=== PATIENT | female | born 1950 | race Caucasian/White ===

== ENCOUNTER → 2017-02-08 | Outpatient (CLI) | payer BC ==
[~2017-02-08] MED LIST: CARB200T3 PO; LEVO150T PO; METF850T9 PO; OMEP20CA9 PO; VENL150C56 PO; ZCR5 PO
--- NOTE | 2017-02-08 15:20 | MAMMOGRAPHY REPORT ---
BILATERAL DIGITAL SCREENING MAMMOGRAM TOMOSYNTHESIS WITH CAD: 02/08/2017 CLINICAL HISTORY: Routine screening. Patient has no complaints. TECHNIQUE: Breast tomosynthesis in addition to standard 2D mammography was performed. Current study was also evaluated with a Computer Aided Detection (CAD) system. COMPARISON: Comparison is made to exams dated: 02/06/2016 mammogram, 02/04/2015 mammogram - [facility], and 08/15/2007. BREAST COMPOSITION: There are scattered areas of fibroglandular density in both breasts. FINDINGS: There is a right superior axillary lymph node measuring 12 x 17 mm. Although it maintains a lucent center/fatty hilum, it is increased in size comparing to last use mammogram at which time i t measured 10 x 14 mm. There is also an increasingly prominent 8 mm lymph node in the left axilla. Targeted ultrasound of both axillae is recommended for further characterization. There are stable benign-appearing round, punctate and rim calcifications in the breasts. A stable ro d-shaped biopsy marker clip in the 12:00 left breast. No other suspicious mass, architectural distor tion or cluster of microcalcifications is seen. IMPRESSION: ACR BI-RADS CATEGORY 0: INCOMPLETE EVALUATION: NEED ADDITIONAL IMAGING EVALUATION The increasing bilateral axillary lymph nodes need additional imaging evaluation. The patient will be called to schedule an appointment. Approximately 10% of breast cancers are not detected with mammography. A negative mammographic report should not delay biopsy if a clinically suggestive mass is present. Luz Maria Alvarenga M.D. ay/:02/08/2017 13:52:06 Imaging Nurse: Concepcion SCHRADER(R)(Selam), [facility] letter sent: Addl Imaging 0 BI-RADS Code: ACR BI-RADS Category 0: Incomplete Evaluation: Need Additional Imaging Evaluation
== END | disposition home or self-care (01) ==
LOC: C.MAMM 09:40
PROVIDERS: ATTEND Family Medicine
DX: Z12.31 Encounter for screening mammogram for malignant neoplasm of breast (principal); R59.0 Localized enlarged lymph nodes

== ENCOUNTER → 2017-02-17 | Outpatient (CLI) | payer BC ==
--- NOTE | 2017-02-18 15:24 | MAMMOGRAPHY REPORT ---
ULTRASOUND OF BOTH BREASTS: 02/17/2017 CLINICAL HISTORY: Prominent bilateral axillary lymph nodes seen on recent screening mammograms, for [facility] ultrasound was recommended. COMPARISON: Comparison is made to exams dated: 02/08/2017 mammogram, 02/06/2016 mammogram, 5 mammogram - [facility], and 08/15/2007. TECHNIQUE: Real-time targeted ultrasound of bilateral axillae was performed. FINDINGS: Real-time, high resolution targeted ultrasound was performed of bilateral axillary regions to evaluat e the lymph nodes. There are morphologically normal left axillary lymph nodes which have normal fatt y mary and thin peripheral cortices. There is no evidence of left axillary adenopathy. In the right axilla, there is an axillary lymph node which measures 1.4 x 0.7 mm. The lymph node is mildly prominent although retains a normal fatty hilum and the cortical thickness is within normal li mits measuring 2 mm. This is felt to correspond with the increased lymph node seen on the recent scr eening mammogram. Although this appears normal morphologically on ultrasound, given the interval mumtaz nge mammographically, ultrasound guided biopsy is recommended for further evaluation. Other morpholo gically normal right axillary lymph nodes were seen on ultrasound. IMPRESSION: ACR BI-RADS CATEGORY 4: SUSPICIOUS - FOLLOW-UP RECOMMENDED Mildly prominent 1.4 cm right axillary lymph node on ultrasound, which corresponds with the increasin gly prominent lymph node seen mammographically. Although this appears normal morphologically, given the interval change mammographically, it is indeterminate and ultrasound-guided core needle biopsy is recommended for further evaluation. A phone call was made to the physician's office to confirm faxed results were received. The patient was verbally notified of the results. She tentatively scheduled the biopsy before leaving the [facility]. Jovita Carter M.D. ah/:02/17/2017 14:15:02 Can Operator: Barbara FALCON)(Selam), [facility] letter sent: Abnormal 4/5 BI-RADS Code: ACR BI-RADS Category 4: Suspicious
== END | disposition home or self-care (01) ==
LOC: C.MAMM 13:26
PROVIDERS: ATTEND Family Medicine
DX: R59.0 Localized enlarged lymph nodes (principal)

== ENCOUNTER → 2017-03-08 | Outpatient (CLI) | payer BC | END | disposition home or self-care (01) | LOC: C.MAMM 08:26 | PROVIDERS: ATTEND Family Medicine | DX: Z78.0 Asymptomatic menopausal state (principal); E28.39 Other primary ovarian failure ==

== ENCOUNTER 2019-03-19 17:18 | Inpatient (IN) ==
[2019-03-19] MEDS ORDERED: ACETAMINOPHEN 325 MG TAB PO PRN (20:13)
--- NOTE | 2019-03-19 20:29 | XRay Report ---
SINGLE VIEW CHEST CLINICAL HISTORY: Atypical chest pain. Dyspnea. FINDINGS: An AP, portable, upright chest radiograph is compared to study dated 02/28/2019. The cardiom ediastinal silhouette is unremarkable noting mild atherosclerotic calcification of the thoracic aorta . The lungs and pleural spaces are clear. No pneumothorax is seen. The skeletal structures are osteop enic. The bony thorax is grossly intact. IMPRESSION: No active disease in the chest. Electronically signed by: Paul Ma M.D. 03/19/2019 8:27 PM
[2019-03-19] MEDS ORDERED: ATROPINE SULFATE 0.1 MG/ML 10ML SYR IV PRN (20:37)
[2019-03-19 20:41] LABS: Basophils # (auto) 0.06 K/uL (0-0.2); Basophils % (auto) 0.6 %; Eosinophils # (auto) 0.59 K/uL (0-0.5); Eosinophils % (auto) 6.1 %; Hematocrit (blood only) 41.5 % (37-47); Hemoglobin 13.6 g/dL (12.0-16.0); Immature Granulocytes # (auto) 0.02 K/uL (0.00-0.02); Immature Granulocytes % (auto) 0.2 %; Lymphocytes # (auto) 2.95 K/uL (1.2-3.4); Lymphocytes % (auto) 30.6 %; Mean Corpuscular Hemoglobin 28.2 pg (25-34); Mean Corpuscular Volume 85.9 fL (80-100); Mean Platelet Volume 8.5 fL (7.4-10.4); Monocytes # (auto) 0.64 K/uL (0.11-0.59); Monocytes % (auto) 6.6 %; Neutrophils # (auto) 5.38 K/uL (1.4-6.5); Neutrophils % (auto) 55.9 %; Platelet Count 220 K/uL (130-400); RDW Standard Deviation 40.8 fL (36.4-46.3); Red Blood Count 4.83 M/uL (4.2-5.4); White Blood Count 9.64 K/uL (4.8-10.8)
[2019-03-19 20:42] LABS: Mean Corpuscular Hgb Conc 32.8 g/dL (32-36)
[2019-03-19 20:52] LABS: INR 1.1 (0.9-1.1); Partial Thromboplastin Time 26.2 Seconds (21.0-31.0); Prothrombin Time 10.8 Seconds (9.0-12.0)
[2019-03-19 20:59] LABS: Alanine Aminotransferase 22 U/L (12-78); Albumin Level 3.4 gm/dl (3.4-5.0); Aspartate Aminotransferase 17 U/L (15-37); BUN Creatinine Ratio 19.4 (10-20); Blood Urea Nitrogen 13 mg/dl (7-18); Calcium 9.1 mg/dl (8.5-10.1); Carbon Dioxide 28 mmol/L (21-32); Chloride 107 mmol/L (98-107); Creatinine Clr Calc Pharmacy 74.9 ml/min; Est GFR (African American) 104.8; Est GFR (Non-African American) 90.4; Glucose 120 mg/dl (70-99); Potassium 3.8 mmol/L (3.5-5.1); Sodium 139 mmol/L (136-145)
[2019-03-19] MEDS ORDERED: POTASSIUM CHLORIDE 20 MEQ TABCR PO STA (21:05)
[2019-03-19 21:09] LABS: Albumin Globulin Ratio 0.9 (0.9-2); Alkaline Phosphatase 91 U/L (45-117); Bilirubin,Total 0.3 mg/dl (0.2-1); Creatine Kinase MB 1.3 ng/ml (0.5-3.6); NT Pro B Type Natriuretic Pept 326 pg/ml (0-900); Total Protein 7.4 gm/dl (6.4-8.2); Troponin I 0.025 ng/ml (0-0.045)
--- NOTE | 2019-03-19 21:15 | History & Physical Report ---
Date of Service March 19, 2019 Assessment & Plan (1) Hypothyroidism: (2) Hypertension: (3) Hyperlipidemia: (4) Diabetes mellitus, type 2: (5) GERD (gastroesophageal reflux disease): (6) Heart block: 69-year-old female with history of DM 2, hypertension, hyperlipidemia, hypothyroidism, Lyme, GERD presents with concern for heart block from manager [employer] office Dr. Arellano [facility]. Patient is scheduled to have EP study, cath and pacemaker placement with Dr. Almendarez today. Concern for recent past STEMI and currently with intermittent heart block Patient is asymptomatic and Troponins wnl x 2 EK, normal sinus rhythm with first-degree heart block HI 258, LBBB QTc 452; concern for ST elevation in V3 and V4 EKG February 28 at [facility] outpatient clinic: Sinus LBBB, poor R wave progression throughout precordium Echo 03/05/2019 at [facility]: EF 45%, mild global hypokinesis with thinning and akinesis mid to distal anterior septum and septum and apex out of proportion to just LBBB, moderate aortic insufficiency Holter monitor 03/14/19: Basic rhythm first-degree AV block and sinus rhythm, periods of WenkeBach 2-1 ratio AV block and complete heart block with slow escape rhythm LBBB -with episodes of shortness of breath and palpitation; periods of blocked PACs, rare PVCs, ventricular pairs, triplets and bigeminy occasional PACs Started on heparin drip with bolus Monitor on telemetry Trend troponin Pacer pads and atropine 0.5 mg IV by bedside for heart rate less than 30 Cardiology consulted: Dr. Almendarez History of hypertension/hyperlipidemia Hold home aspirin in the setting of procedure tomorrow Hold home benazepril Continue home atorvastatin DM2 Hold home metformin and Tresiba Started on SSI Hypothyroidism Continue home levothyroxine FEN/GI: N.p.o. for possible procedure tomorrow DVT prophylaxis: Heparin drip Code: Full Disposition: PCU telemetry (7) ST elevation (STEMI) myocardial infarction: 69-year-old female with history of DM 2, hypertension, hyperlipidemia, hypothyroidism, Lyme, GERD presents with concern for heart block from manager [employer] office Dr. Adan Leon [facility]. Patient is scheduled to have EP study, cath and pacemaker placement with Dr. Almendarez tomorrow. Concern for STEMI and heart block Currently patient is asymptomatic EK, normal sinus rhythm with first-degree heart block HI 258, LBBB QTc 452; concern for ST elevation in V3 and V4 EKG February 28 at [facility] outpatient clinic: Sinus LBBB, poor R wave progression throughout precordium Echo 03/05/2019 at [facility]: EF 45%, mild global hypokinesis with thinning and akinesis mid to distal anterior septum and septum and apex out of proportion to just LBBB, moderate aortic insufficiency Holter monitor 03/14/19: Basic rhythm first-degree AV block and sinus rhythm, periods of WenkeBach 2-1 ratio AV block and complete heart block with slow escape rhythm LBBB -with episodes of shortness of breath and palpitation; periods of blocked PACs, rare PVCs, ventricular pairs, triplets and bigeminy occasional PACs Troponin 0.025, BNP normal, TSH normal Started on heparin drip with bolus Monitor on telemetry Trend troponin Pacer pads and atropine 0.5 mg IV by bedside for heart rate less than 30 Cardiology consulted: Dr. Almendarez History of hypertension/hyperlipidemia Hold home aspirin in the setting of procedure tomorrow Hold home benazepril Continue home atorvastatin DM2 Hold home metformin and Tresiba Started on SSI Hypothyroidism Continue home levothyroxine FEN/GI: N.p.o. for possible procedure tomorrow DVT prophylaxis: Heparin drip Code: Full Disposition: PCU telemetry History of Present Illness Chief Complaint: Concern for heart block Primary Care Provider: Dora Lara MD 69-year-old female with history of DM 2, hypertension, hyperlipidemia, hypothyroidism, Lyme, GERD presents with concern for heart block from manager [employer] office Dr. Arellano [facility]. Patient is scheduled to have EP study, cath and pacemaker placement with Dr. Almendarez tomorrow. Patient reports shortness of breath on exertion that started about 6 months ago and got worse about 1 month ago. She saw cardiology about 10 days ago for sick concern of increased shortness of breath on exertion, when walking uphill and lightheadedness. She had an EKG which was abnormal and Dr. Arellano also ordered echo and Holter. She was called tonight to go to the hospital for concern of episodes of 2-1 AV block and complete heart block with left bundle branch block. Currently patient denies any shortness of breath, chest pain, lightheadedness, palpitations. However if she significantly exerts herself, bends over or gets up too quickly she feels lightheaded and short of breath. She also reports history occasional nanosecond chest pain that is sharp in nature and pressure- like chest pain if doing things around the house/exerting herself but it goes away with rest. None at this time Denies any fever, chills, headache, abdominal pain, nausea, vomiting, diarrhea, constipation, hematochezia, melena, hematuria and dysuria Social history: Patient quit smoking in 2005, smoked for 35 years 1 pack/day, drinks 1 glass of wine once a month, no recreational drug use Surgical history: History of cholecystectomy and cataract surgery Allergies Allergy/AdvReac Type Severity Reaction Status Date / Time levofloxacin Allergy Mild dizzy Verified 09/05/18 08:01 Penicillins Allergy Unknown UNKNOWN Verified 09/05/18 08:01 erythromycin base AdvReac Intermediate BRUISES ON Verified 09/05/18 08:01 LEGS Home Medications Home Medications Medication Instructions Recorded Confirmed Type PreserVision AREDS-2 1 tab PO BID 08/07/18 03/19/19 History aspirin 81 mg PO HS 08/07/18 03/19/19 History metformin [Glucophage] 1,000 mg PO Q12 08/07/18 03/19/19 History omeprazole 20 mg PO QAM 08/07/18 03/19/19 History Tresiba FlexTouch U-100 22 unit SUBCUT BID 09/05/18 03/19/19 History levothyroxine 112 mcg PO DAILY 09/05/18 03/19/19 History atorvastatin 20 mg PO HS 03/19/19 03/19/19 History benazepril 10 mg PO HS 03/19/19 03/19/19 History nitroglycerin 0.4 mg SUBLINGUAL UNKNOWN PRN 03/19/19 03/19/19 History Past Med/Surg History Medical History Branch retinal artery occlusion of right eye Diabetes mellitus, type 2 GERD (gastroesophageal reflux disease) Hyperlipidemia Hypertension Hypothyroidism Surgical History History of bilateral cataract extraction History of cholecystectomy History of colonoscopy History of esophagogastroduodenoscopy (EGD) History of strabismus surgery left eye History of tonsillectomy and adenoidectomy History of tooth extraction upper and lower dentures History of wisdom tooth extraction Hx of left breast biopsy x2--benign Family History Mother Family history of stomach cancer Other No family history of adverse response to anesthesia Social History Preferred Language: Egyptian Communication Ability: Effective House Calls Nurse Required: No Beliefs That Will Affect Care: None Current Living Situation: Spouse and Family Current Living Situation Comment: Lives with and daughter Other Information That Helps Us Care for You: No Feels Safe at Home: Yes Safety Concerns: Feels Safe At This Time Smoking Status: Former smoker Second Hand Exposure: Yes (parents smoked) ; Hx Alcohol Use: Yes Alcohol type: wine Hx Substance Use: No Review of Systems Review of Systems: As per HPI Physical Exam Physical Exam: General: In NAD, pleasant HEENT: moist oral mucosa Neuro: A&O x 4 Pulm: CTAB equal breath sounds bilaterally CV: RRR, no m/r/g, equal and 2+ radial and posterior tibial pulses Abdomen:+BS, no TTP in all quadrants, non-distended LE: no LE edema, no calf TTP Results & Data Vital Signs (Past 12 Hours) Vital Signs Temp Pulse Resp BP Pulse Ox 03/19/19 19:35 36.6 C 69 16 172/77 H 96 Laboratory Results Abnormal lab results 03/19/19 03/19/19 Range/Units 20:20 20:20 [place] # (Auto) 0.64 H (0.11-0.59) K/uL [place] # (Auto) 0.59 H (0-0.5) K/uL Glucose 120 H (70-99) mg/dl Diagnostic Findings SINGLE VIEW CHEST CLINICAL HISTORY: Atypical chest pain. Dyspnea. FINDINGS: An AP, portable, upright chest radiograph is compared to study dated 02/28/2019. The cardiomediastinal silhouette is unremarkable noting mild atherosclerotic calcification of the thoracic aorta. The lungs and pleural spaces are clear. No pneumothorax is seen. The skeletal structures are osteopenic. The bony thorax is grossly intact. IMPRESSION: No active disease in the chest. Code Status & VTE Plan Code Status Full VTE Prophylaxis Plan VTE Prophylaxis will be ordered: Yes Supervising Physician Co-Signing Physician Notes I directly supervised in the treatment of Ms.Saeid including but not limited my involvement into clinical examination, reconciliation of the medication and comorbidities and making a assessment and plan and I entirely agree with H&P. Resident Activity Tracking Resident Involvement: Resident Care Provided Care Provided: Adult Hospital Medicine
[2019-03-19 21:18] LABS: Magnesium 1.6 mg/dl (1.8-2.4)
[2019-03-19] MEDS ORDERED: HEPARIN IV BOLUS 5,000 UNITS in SYRINGE 0 ML IV ONE (22:00)
[2019-03-19] MEDS ORDERED: HEPARIN SODIUM/DEXTROSE 25,000 UNITS/500 ML BAG IV SCH (22:15)
[2019-03-20] MEDS ORDERED: MAGNESIUM SULFATE / D5W 1 GM/100 ML BAG IV ONE (00:59)
[2019-03-20 04:53] LABS: Basophils # (auto) 0.07 K/uL (0-0.2); Basophils % (auto) 0.8 %; Eosinophils # (auto) 0.63 K/uL (0-0.5); Eosinophils % (auto) 7.3 %; Hematocrit (blood only) 38.5 % (37-47); Hemoglobin 12.7 g/dL (12.0-16.0); Immature Granulocytes # (auto) 0.01 K/uL (0.00-0.02); Immature Granulocytes % (auto) 0.1 %; Lymphocytes # (auto) 3.13 K/uL (1.2-3.4); Lymphocytes % (auto) 36.3 %; Mean Corpuscular Hemoglobin 28.3 pg (25-34); Mean Corpuscular Volume 85.7 fL (80-100); Mean Platelet Volume 8.6 fL (7.4-10.4); Monocytes % (auto) 10.4 %; Neutrophils # (auto) 3.88 K/uL (1.4-6.5); Neutrophils % (auto) 45.1 %; Platelet Count 214 K/uL (130-400); RDW Coefficient of Variation 13.2 % (11.5-14.5); RDW Standard Deviation 41.2 fL (36.4-46.3); Red Blood Count 4.49 M/uL (4.2-5.4); White Blood Count 8.62 K/uL (4.8-10.8)
[2019-03-20 05:10] LABS: Partial Thromboplastin Ratio 4.2
[2019-03-20 05:20] LABS: Albumin Level 3.2 gm/dl (3.4-5.0); BUN Creatinine Ratio 21.5 (10-20); Calcium 8.8 mg/dl (8.5-10.1); Creatinine Clr Calc Pharmacy 82.7 ml/min; Est GFR (African American) 108.2; Est GFR (Non-African American) 93.4; Potassium 3.9 mmol/L (3.5-5.1)
[2019-03-20 05:25] LABS: Albumin Globulin Ratio 0.9 (0.9-2); Bilirubin,Total 0.4 mg/dl (0.2-1); Globulin 3.4 gm/dl (2.5-4.0); Total Protein 6.6 gm/dl (6.4-8.2); Troponin I 0.022 ng/ml (0-0.045)
[2019-03-20 05:26] LABS: Partial Thromboplastin Time 112.7 Seconds (21.0-31.0)
[2019-03-20] MEDS: LEVOTHYROXINE SODIUM 112 MCG TABLET PO SCH (05:59)
[2019-03-20] MEDS: PANTOprazole 40 MG TAB PO SCH (07:57)
--- NOTE | 2019-03-20 08:36 | Hospitalist Progress Note ---
Date of Service March 20, 2019 Assessment & Plan (1) Heart block: Troponins wnl x 2 EK, normal sinus rhythm with first-degree heart block VT 258, LBBB QTc 452; concern for ST elevation in V3 and V4 EKG February 28 at [facility] outpatient clinic: Sinus LBBB, poor R wave progression throughout precordium Echo 03/05/2019 at [facility]: EF 45%, mild global hypokinesis with thinning and akinesis mid to distal anterior septum and septum and apex out of proportion to just LBBB, moderate aortic insufficiency Holter monitor 03/14/19: Basic rhythm first-degree AV block and sinus rhythm, periods of WenkeBach 2-1 ratio AV block and complete heart block with slow escape rhythm LBBB -with episodes of shortness of breath and palpitation; periods of blocked PACs, rare PVCs, ventricular pairs, triplets and bigeminy occasional PACs - Heparin drip discontinued per cardiology - Cardiology consulted: Dr. Almendarez - Diagnostic cath today - 50-60% stenosis in between the 1st and 2nd diagonal branches of the LAD but otherwise clean cath (2) Hypothyroidism: Continue home levothyroxine (3) Hypertension: Resume aspirin and benazepril (4) Hyperlipidemia: Continue home atorvastatin (5) Diabetes mellitus, type 2: DM2 Hold home metformin and Tresiba Continue SSI (6) GERD (gastroesophageal reflux disease): continue home pantoprazole (7) DVT prophylaxis: SCDs Subjective Ms. Breaux was feeling well when I saw her this morning. She did have occasional fluttering feelings in her chest but no chest pain or other symptoms today. She was NPO for procedures this afternoon ROS Constitutional: no chills, aches, sweats or fever Respiratory: no sob,cough, sputum, or wheezing Cardiac: no chest pain, palpitations, edema, orthopnea or lightheadedness GI: no abdominal pain, nausea, vomiting, diarrhea or constipation : no dysuria or hesitancy Extremities: no joint pain or weakness Skin: no rash All other systems reviewed and negative Physical Exam Physical Exam: General: no distress Eyes: normal inspection, PERLL Respiratory: chest non tender, clear to auscultation, normal breath sounds, no respiratory distress, no accessory muscle use Cardiac: regular rate and rhythm, no rub or gallop, no murmur, no edema, no jvd GI/: active bowel sounds, no abd pain or tenderness, soft, non distended Extremities: normal range of motion, normal strength, non tender Neuro/Psych: alert and oriented x 3, normal mood and affect Skin: normal color, dry Results & Data Vital Signs (Past 12 Hours) Vital Signs Temp Pulse Resp BP Pulse Ox 03/20/19 08:11 36.7 C 57 L 18 116/73 97 03/20/19 03:42 36.7 C 64 18 136/71 97 03/19/19 23:13 36.5 C 66 18 155/67 H 98 PG Care Time/CCT Total # of Minutes Spent Total Time Spent with Patient: Total time spent is greater than 50% in coordination of care (as documented) at patient's floor/unit and/or counseling patient:
--- NOTE | 2019-03-20 09:06 | Cardiology Consultation ---
Date of Consultation March 20, 2019 History of Present Illness History of Present Illness Patient is a 69-year-old female with past medical history significant for diabetes mellitus hypertension hyperlipidemia and remote history of myocardial infarction in the recent past who was originally seen in my office for an abnormal echocardiogram which revealed hypokinesis of the anterior apical region with a reduced LVEF of 45%. Patient noted that she started having shortness of breath several weeks ago and noted no associated lightheadedness. She had denied chest pain palpitations or any other complaints. She was subsequently set up with a monitor as well as a stress viability MRI. We received the report yesterday which showed that she did have in fact intermittent 2-1 AV block as well as complete heart block that was intermittent with associated lightheadedness. The patient was subsequently directly admitted to [facility] for further care with the intention of having her undergo a diagnostic catheterization and possible DIESEL RET[employer]IT DES[employer]ER-P therapy. This morning she was seen and examined and is noting that she is stable feeling well she is denying any complaints of lightheadedness chest pain shortness of breath although she notes she only walk from her bed to the bathroom with no other ambulation or exertion. She is otherwise stable with no other complaints. Allergies Allergy/AdvReac Type Severity Reaction Status Date / Time levofloxacin Allergy Mild dizzy Verified 09/05/18 08:01 Penicillins Allergy Unknown UNKNOWN Verified 09/05/18 08:01 erythromycin base AdvReac Intermediate BRUISES ON Verified 09/05/18 08:01 LEGS Home Medications Home Medications Medication Instructions Recorded Confirmed Type PreserVision AREDS-2 1 tab PO BID 08/07/18 03/19/19 History aspirin 81 mg PO HS 08/07/18 03/19/19 History metformin [Glucophage] 1,000 mg PO Q12 08/07/18 03/19/19 History omeprazole 20 mg PO QAM 08/07/18 03/19/19 History Tresiba FlexTouch U-100 22 unit SUBCUT BID 09/05/18 03/19/19 History levothyroxine 112 mcg PO DAILY 09/05/18 03/19/19 History atorvastatin 20 mg PO HS 03/19/19 03/19/19 History benazepril 10 mg PO HS 03/19/19 03/19/19 History nitroglycerin 0.4 mg SUBLINGUAL UNKNOWN PRN 03/19/19 03/19/19 History Patient History Medical History Branch retinal artery occlusion of right eye Diabetes mellitus, type 2 GERD (gastroesophageal reflux disease) Hyperlipidemia Hypertension Hypothyroidism Surgical History History of bilateral cataract extraction History of cholecystectomy History of colonoscopy History of esophagogastroduodenoscopy (EGD) History of strabismus surgery left eye History of tonsillectomy and adenoidectomy History of tooth extraction upper and lower dentures History of wisdom tooth extraction Hx of left breast biopsy x2--benign Family History Mother Family history of stomach cancer Other No family history of adverse response to anesthesia Social History Preferred Language: Citizen Of [place] Communication Ability: Effective Field Seismologist Required: No Beliefs That Will Affect Care: None Current Living Situation: Spouse and Family Current Living Situation Comment: Lives with and daughter Other Information That Helps Us Care for You: No Feels Safe at Home: Yes Safety Concerns: Feels Safe At This Time Smoking Status: Former smoker Second Hand Exposure: Yes (parents smoked) ; Hx Alcohol Use: Yes Alcohol type: wine Hx Substance Use: No Review of Systems Review of Systems: All systems reviewed & are unremarkable except as noted in HPI & below Physical Exam Physical Exam: General appearance: NextPatient was awake and alert and oriented no apparent distress stable pleasant HEENT: Normocephalic atraumatic sclera nonicteric mucous membranes were somewhat dry Neck: No JVD bruits or adenopathy noted Cardiovascular: Regular rate and rhythm with no appreciable murmurs Lungs: Clear to auscultation Abdomen: Soft nontender nondistended positive bowel sounds no bruits or masses no rebound tenderness Extremities: No clubbing cyanosis or edema Neuro: Grossly nonfocal Results & Data Vital Signs (Past 12 Hours) Vital Signs Temp Pulse Resp BP Pulse Ox 03/20/19 08:11 36.7 C 57 L 18 116/73 97 03/20/19 03:42 36.7 C 64 18 136/71 97 03/19/19 23:13 36.5 C 66 18 155/67 H 98 Impression and plan: 1. History of myocardial infarction 2. Diabetes mellitus 3. Hyperlipidemia 4. Hypertension 5. Left bundle branch block 6. Complete heart block Given the patient's history and presentation we will consult Dr. Andi Almendarez to have the patient undergo a diagnostic cardiac catheterization will await those results and the patient will also be evaluated for possible [employer]-P therapy given her sinus rhythm left bundle branch block with reduced LVEF less than 50% and history of complete heart block that is symptomatic. We will continue with titrating her guideline directed pharmacotherapy. I recommended a low-sodium low-fat heart healthy diet. We will continue with telemetry monitoring and again we will await the results of the diagnostic cardiac catheterization before making any further cardiac recommendations. Please call if you have any questions
[2019-03-20] MEDS: ASPIRIN 325 MG ECTAB PO SCH (10:33)
[2019-03-20] MEDS: CEROVITE ADV FORMULA TAB PO SCH ×2 (10:34→20:24)
--- NOTE | 2019-03-20 13:42 | Pre Anesthesia Assessment ---
Date of Service March 20, 2019 Pre Sedation Assessment Vital Signs Temp Pulse Resp BP Pulse Ox 03/20/19 11:36 36.8 C 62 18 117/69 95 03/20/19 08:11 36.7 C 57 L 18 116/73 97 03/20/19 03:42 36.7 C 64 18 136/71 97 03/19/19 23:13 36.5 C 66 18 155/67 H 98 03/19/19 19:35 36.6 C 69 16 172/77 H 96 Cardiovascular + regular rate Respiratory + respiratory effort normal Pre-Sedation Airway Assessment Smoking Status: Former smoker Hx Sleep Apnea: No Short, Thick Neck: No Thyromental Distance: > or= 3.5 Finger Breadths Oral Cavity: + WNL Mallampati Class: III ASA: ASA3 Procedure Planning Contraindications for Sedation: none Current Medications Reviewed: Yes Notes The planned sedation has been discussed with the patient. Informed Consent was obtained. I have identified the patient, determined the appropriateness of sedation and have assessed the patient immediately prior to the procedure. All medicine(s) and interventions are by my order.
[2019-03-20] MEDS ORDERED: MIDAZOLAM HCL 1 MG/ML 2ML VIAL ONE ×2 (14:24→15:08)
[2019-03-20] MEDS ORDERED: fentaNYL citrate 100 MCG/2 ML VIAL ONE ×2 (14:24→15:29)
[2019-03-20] MEDS ORDERED: NiCARDipine HCL INJ 2.5 MG/ML 10 ML AMP ONE (14:24)
[2019-03-20] MEDS ORDERED: HEPARIN (PORCINE) 1000 UNIT/ML 10 ML (CATH LAB USE ONLY) ONE (14:24)
[2019-03-20] MEDS ORDERED: NITROGLYCERIN/D5W 100MCG/ML 20ML SYR ONE (14:25)
--- NOTE | 2019-03-20 14:40 | Cardiology Consultation ---
Date of Consultation March 20, 2019 Assessment & Plan (1) Dyspnea on exertion: Unclear etiology for her dyspnea. She may have an element of coronary artery disease and this could be considered an anginal equivalent. She also has some reduced LV systolic function in this could be exercise intolerance related to her mild cardiomyopathy. Additionally, she likely has an element of infra- Hisian conduction disease. With activity the should get worse and she may simply have symptomatic bradycardia at times. We will evaluate all of these today. She will undergo coronary angiography and if she does not require surgical revascularization we will plan on pacemaker implantation. (2) Heart block: She has baseline conduction disease manifest by a long UT interval and left bundle branch block. It is unclear whether this accounts for her reduced LV systolic function. She could have ischemic heart disease or a nonischemic cardiomyopathy which has also resulted in conduction disease. She is very concerned about Lyme disease causing her problems. However, she was treated for acute Lyme several months ago. I do not believe her current conduction issues are related to Lyme disease. She has had periods of high-degree AV block. She likely had infra-Hisian conduction disease and would benefit from permanent pacing. Given her mildly reduced LV function in the possibility that she will pacing significant amount of time, a biventricular device seems most appropriate. History of Present Illness Reason for Consultation: Heart block, abnormal echocardiogram Requesting Physician: Adan Attending Physician: Jared Bower MD History of Present Illness The patient is a 69-year-old woman without a known history of cardiac disease who recently presented to her primary care physician with symptoms of worsening dyspnea. He states that prior to the past several weeks she was very active. She is able to ambulate and walk extended distances without significant dyspnea or other limitation. Recently she has been experiencing shortness of breath with activity. This does not tend to occur at rest. She did not describe symptoms of orthopnea or paroxysmal nocturnal dyspnea. She does have vague symptoms of chest pressure. This is not always exertional. She also has episodes of fleeting chest pain that she describes as stabbing. She has had some brief episodes of dizziness. She has not suffered syncope. She has not been aware of palpitations. Outpatient evaluation included an echocardiogram which was abnormal. This demonstrated mildly reduced LV systolic function with an estimated ejection fraction of 45%. She also had regional wall motion abnormality involving the anterior apex. Holter monitoring was also performed and patient was noted to have episodes of high-degree heart block. She has a baseline left bundle branch block and 1st degree AV block. Allergies Allergy/AdvReac Type Severity Reaction Status Date / Time levofloxacin Allergy Mild dizzy Verified 09/05/18 08:01 Penicillins Allergy Unknown UNKNOWN Verified 09/05/18 08:01 erythromycin base AdvReac Intermediate BRUISES ON Verified 09/05/18 08:01 LEGS Home Medications Home Medications Medication Instructions Recorded Confirmed Type PreserVision AREDS-2 1 tab PO BID 08/07/18 03/19/19 History aspirin 81 mg PO HS 08/07/18 03/19/19 History metformin [Glucophage] 1,000 mg PO Q12 08/07/18 03/19/19 History omeprazole 20 mg PO QAM 08/07/18 03/19/19 History Tresiba FlexTouch U-100 22 unit SUBCUT BID 09/05/18 03/19/19 History levothyroxine 112 mcg PO DAILY 09/05/18 03/19/19 History atorvastatin 20 mg PO HS 03/19/19 03/19/19 History benazepril 10 mg PO HS 03/19/19 03/19/19 History nitroglycerin 0.4 mg SUBLINGUAL UNKNOWN PRN 03/19/19 03/19/19 History Patient History Medical History Branch retinal artery occlusion of right eye Diabetes mellitus, type 2 GERD (gastroesophageal reflux disease) Hyperlipidemia Hypertension Hypothyroidism Surgical History History of bilateral cataract extraction History of cholecystectomy History of colonoscopy History of esophagogastroduodenoscopy (EGD) History of strabismus surgery left eye History of tonsillectomy and adenoidectomy History of tooth extraction upper and lower dentures History of wisdom tooth extraction Hx of left breast biopsy x2--benign Family History Mother Family history of stomach cancer Other No family history of adverse response to anesthesia Social History Preferred Language: Arabic Communication Ability: Effective Drafter Electronic Required: No Beliefs That Will Affect Care: None Current Living Situation: Spouse and Family Current Living Situation Comment: Lives with and daughter Other Information That Helps Us Care for You: No Feels Safe at Home: Yes Safety Concerns: Feels Safe At This Time Smoking Status: Former smoker Second Hand Exposure: Yes (parents smoked) ; Hx Alcohol Use: Yes Alcohol type: wine Hx Substance Use: No Results & Data Vital Signs (Past 12 Hours) Vital Signs Temp Pulse Resp BP Pulse Ox 03/20/19 11:36 36.8 C 62 18 117/69 95 03/20/19 08:11 36.7 C 57 L 18 116/73 97 03/20/19 03:42 36.7 C 64 18 136/71 97 PG Care Time/CCT Total # of Minutes Spent Total Time Spent with Patient: Total time spent is greater than 50% in coordination of care (as documented) at patient's floor/unit and/or counseling patient:
[2019-03-20] MEDS ORDERED: CLINDAMYCIN PHOS 300 MG/2 ML VIAL ONE (14:54)
[2019-03-20] MEDS ORDERED: LIDOCAINE HCL 1% 20 ML VIAL ONE (15:02)
[2019-03-20] MEDS ORDERED: BUPIVACAINE 0.25% 30 ML VIAL ONE (15:02)
[2019-03-20] MEDS ORDERED: BACITRACIN INJ 50,000 UNIT VIAL ONE (15:03)
--- NOTE | 2019-03-20 15:08 | Cardiac Catheterization ---
[facility] Data: Hostess Host Cardiac Status Clinical evaluation leading to the procedure CAD Presenation: Stable angina Diagnostic Physicians Name: Andi Almendarez MD Closure Device Recommendations: Medical Therapy and/or Counseling Cardiac Cath Procedure Full Procedure Date March 20, 2019 Pre-Procedure Diagnosis Pre-Procedure Diagnosis: Cardiomyopathy AUC Score AUC Score: 8 Post-Procedure Diagnosis Post-Procedure Diagnosis: Mild CAD Procedure(s) Performed Procedure(s) Performed: Coronary Angiography and Left Heart Cath [facility] Andi Almendarez MD Instructional Technologist(s) none Estimated Blood Loss Estimated Blood Loss: 7cc Medication(s) Medication(s): Fentanyl, Heparin, Lidocaine 1%, Nicardipine, Nitroglycerin and Versed Summary of Findings Equipment used: 5 Turkmen tiger 4 Coronary angiography: Left main: Left main coronary artery was of normal size and caliber. It bifurcated normally into the left anterior descending and left circumflex arteries. There is no significant disease in this vessel Left anterior descending: Left anterior descending was a large transapical vessel. It produced a medium-sized 1st diagonal and a smaller 2nd diagonal branch prior to reaching the apex. There was approximately a 50-60% stenosis in between the 1st and 2nd diagonal branches. No other obstructive disease in this vessel Left circumflex: Left circumflex artery was a codominant vessel. It produced a large branching 1st OM system and several additional smaller obtuse marginal branches. There were no significant stenotic lesions in this vessel. Right coronary artery: The right coronary artery was a codominant vessel. It was relatively small. It produced a small PDA and PL branch. There is no significant disease in this vessel. Hemodynamics Rest Ao:: 107/57 mm Hg Final Ao: 116/55 mm of mercury LV: 112/1 mm hg with a left ventricular end-diastolic pressure of 7 mm of mercury Recommendations Recommendations: Medical Therapy and/or Counseling Specimens Specimens: None Radiation Exposure (mGy) q Contrast (mls) 30 CC Procedural Complication(s) None Disposition PCU I attest to the content of the Intraoperative Record and any orders documented therein. Any exceptions are noted below. [facility] Card Cath Procedure Codes Cardiac Catheterization Procedure 1: Cardiovascular Cath Procedures: 78977 Coronaries and LHC (+/-LV) PG Care Time/CCT Total # of Minutes Spent Total Time Spent with Patient: Total time spent is greater than 50% in coordination of care (as documented) at patient's floor/unit and/or counseling patient:
[2019-03-20] MEDS ORDERED: MIDAZOLAM HCL 5 MG/ML 1 ML VIAL ONE (15:29)
--- NOTE | 2019-03-20 17:25 | Procedure Note ---
Procedure Note Date of Service March 20, 2019 Note Procedure performed: Implantation of biventricular pacemaker Staff prescription eyeglass maker: Andi Almendarez MD Indication: The patient is a 69-year-old woman with a history of exertional dyspnea secondary to bradycardia. She has baseline conduction disease and was noted to have high degree AV block on Holter monitoring. Based on her symptoms she is felt to require pacemaker due to symptomatic nonreversible AV node dysfunction. Is also noted to have reduced LV systolic function with an ejection fraction of 45%. Due to the need for significant pacing she is felt be good candidate for biventricular device. Procedure in detail: The patient was informed of the risks benefits and alternatives to the intended procedure and she wished to proceed. She was taken to the electrophysiology suite in a fasting state. A preoperative antibiotic had been administered. The patient was monitored electrocardiographically throughout today's procedure and conscious sedation was administered per protocol. The left upper pectoral area is prepped and draped in usual sterile fashion. This area was anesthetized using subcutaneous administration of a xylocaine solution. An incision was made at this site and carried down to the prepectoralis fascia using sharp dissection. Electrocautery was also employed for dissection as well as for hemostasis. A device pocket was fashioned tissues above the pectoralis muscle. Subsequent to this maneuver the left axillary vein was accessed using modified Seldinger technique. Sheaths were placed over guidewires at this site and used to facilitate passage of the pacing leads to the respective chambers under fluoroscopic guidance. This included right atrial and right ventricular leads. Adequate sensing and threshold parameters were obtained prior to Active fixation of the leads to the endocardial surface. The proximal portion leads were then sutured the prepectoral fascia using nonabsorbable suture. After the atrial and right ventricular leads were placed, a guiding catheter was advanced to the area of the coronary sinus. The coronary sinus was subsequently cannulated and a limited coronary sinus venogram was performed. This enabled us to identify suitable target vessels. Standard guidewire techniques were then deployed in order to deliver the lead to the target vessel. Adequate sensing and threshold parameters in the absence of diaphragmatic stimulation at high output were recorded prior to removal of the guiding sheath. The proximal portion of this lead was then sutured to the prepectoralis fascia using nonabsorbable suture. The device pocket was irrigated with antibiotic solution. The leads were then attached to the device. The device and leads were then placed in the pocket and pocket was closed in 3 layers of absorbable suture. Steri-Strips and sterile dr essing were applied. The device was tested noninvasively prior to conclusion the procedure. The patient tolerated procedure well there no immediate complications. Equipment used: New pulse generator: Continuous Washer Operator [employer]. Model number: W4 TR 02 serial number [id number] Right atrial lead: Continuous Washer Operator [employer]. Model number: 5076 serial number [id number] Right ventricular lead: Continuous Washer Operator [employer]. Model number: 5076 serial number [id number] Left ventricular lead project architect [employer]. Model #4798 serial number Q [id number] Measured data: Right atrial lead: P waves measure 1.8 mV. Pacing threshold 0.5 V 0.4 ms with pacing impedance of 589 ohms Right ventricular lead: R waves measured 8.4 mV. Pacing threshold was 1 V at 0.4 ms with a pacing impedance of 741 ohms Left ventricular lead: R waves measured 17 mV. Pacing threshold 0.625 V at 0.4 ms with a pacing impedance of 437 ohms Impression: Successful implantation of biventricular pacemaker Coding
--- NOTE | 2019-03-20 17:46 | Post Anesthesia Assessment ---
Date of Service March 20, 2019 Post Sedation Assessment Vital Signs Temp Pulse Resp BP Pulse Ox 03/20/19 11:36 36.8 C 62 18 117/69 95 03/20/19 08:11 36.7 C 57 L 18 116/73 97 03/20/19 03:42 36.7 C 64 18 136/71 97 03/19/19 23:13 36.5 C 66 18 155/67 H 98 03/19/19 19:35 36.6 C 69 16 172/77 H 96 Recovery Score Activity: Moves 4 extremities Respiration: Deep Breath/Cough Circulation: +/-20% PreAnes Value Consciousness: Fully Awake Oxygen Saturation: > 92% On Room Air Discharge Sedation Level of Care: Fast Track Phase II Post Sedation Plan On clinical assessment, the patient appears to have tolerated the sedation without complications. Patient is recovering as anticipated. Patient will continue to be monitored by nursing and may be discharged when sedation discharge criteria are met per below protocol. Upon Completions of procedure up to 15 minutes continue every 5 minute vital signs and the P.A.R. score; then discharge to a Phase I or Fast Track to Phase II per the following guidelines: * Discharge Patient to appropriate Phase II area if PAR is 8 or greater or return to pre- procedure baseline. The post - procedure orders will be as directed. * If PAR score is less than 8 or not return to pre-procedure baseline then patient will follow Phase I monitoring till PAR is reached for Phase II. The Phase I may be done in procedure room or may call to secure a Phase I area. * If naloxone or flumazenil are used for reversal, hold in Phase I for continued monitoring from when last reversal dose was given for a minimum of 60 minutes or longer pending the nurse and/or physician discretion of patient condition before discharge to Phase II. Please call the Sedation Physician to re-evaluate and complete post-note for discharge to Phase II area. Do NOT discharge from procedure sedation or Phase 1 until post- sedation evaluation note is complete by procedure /sedation MD Sedation Discharge Instructions to be given to the patient at discharge to home.
[2019-03-20] MEDS ORDERED: ONDANSETRON INJ 2 MG/ML 2 ML VIAL IV ONE (18:41)
[2019-03-20] MEDS ORDERED: ONDANSETRON INJ 2 MG/ML 2 ML VIAL ONE (18:43)
[2019-03-20] MEDS: ACETAMINOPHEN 325 MG TAB PO PRN (18:49)
[2019-03-20] MEDS: OXYCODONE HCL IR 5 MG TAB (IMMEDIATE RELEASE) PO PRN (20:01)
[2019-03-20] MEDS ORDERED: ATORVASTATIN 20 MG TAB PO SCH (21:00)
[2019-03-20] MEDS ORDERED: ENALAPRIL MALEATE 10 MG TAB PO SCH (21:00)
[2019-03-20] MEDS: CLINDAMYCIN 600 MG in DEXTROSE 5% 50 ML IV SCH (23:41)
[2019-03-21] MEDS: OXYCODONE HCL IR 5 MG TAB (IMMEDIATE RELEASE) PO PRN ×4 (00:17→13:31)
[2019-03-21 05:57] LABS: Basophils # (auto) 0.05 K/uL (0-0.2); Basophils % (auto) 0.5 %; Eosinophils # (auto) 0.39 K/uL (0-0.5); Hematocrit (blood only) 37.9 % (37-47); Hemoglobin 12.5 g/dL (12.0-16.0); Immature Granulocytes # (auto) 0.01 K/uL (0.00-0.02); Immature Granulocytes % (auto) 0.1 %; Lymphocytes # (auto) 2.14 K/uL (1.2-3.4); Lymphocytes % (auto) 22.2 %; Mean Corpuscular Hemoglobin 28.5 pg (25-34); Mean Corpuscular Volume 86.3 fL (80-100); Mean Platelet Volume 8.5 fL (7.4-10.4); Monocytes # (auto) 0.98 K/uL (0.11-0.59); Monocytes % (auto) 10.2 %; Neutrophils # (auto) 6.07 K/uL (1.4-6.5); Platelet Count 192 K/uL (130-400); RDW Coefficient of Variation 13.2 % (11.5-14.5); RDW Standard Deviation 42.1 fL (36.4-46.3); Red Blood Count 4.39 M/uL (4.2-5.4); White Blood Count 9.64 K/uL (4.8-10.8)
[2019-03-21] MEDS: LEVOTHYROXINE SODIUM 112 MCG TABLET PO SCH (06:02)
[2019-03-21 06:30] LABS: Albumin Level 3.1 gm/dl (3.4-5.0); BUN Creatinine Ratio 18.2 (10-20); Calcium 8.6 mg/dl (8.5-10.1); Creatinine Clr Calc Pharmacy 56.7 ml/min; Est GFR (African American) 81.6; Est GFR (Non-African American) 70.4; Potassium 3.8 mmol/L (3.5-5.1)
--- NOTE | 2019-03-21 06:32 | XRay Report ---
XR chest 2V PA/lateral CLINICAL HISTORY: Chest x-ray status post pacemaker placement COMPARISON STUDY: 03/19/2019 FINDINGS: There has been interval placement of a left subclavian pacemaker. No pneumothorax is visual ized. There is no focal pulmonary consolidation. There are no pleural effusions. Electrode position i s unremarkable.[ IMPRESSION: No evidence of pneumothorax status post pacemaker placement. Electronically signed by: Cordell Ruth M.D. 03/21/2019 6:30 AM
[2019-03-21 06:33] LABS: Albumin Globulin Ratio 0.9 (0.9-2); Bilirubin,Total 0.5 mg/dl (0.2-1); Globulin 3.6 gm/dl (2.5-4.0); Total Protein 6.7 gm/dl (6.4-8.2)
[2019-03-21] MEDS: PANTOprazole 40 MG TAB PO SCH (07:56)
[2019-03-21] MEDS: ASPIRIN 325 MG ECTAB PO SCH (07:56)
[2019-03-21] MEDS: CEROVITE ADV FORMULA TAB PO SCH (07:57)
[2019-03-21] MEDS: CLINDAMYCIN 600 MG in DEXTROSE 5% 50 ML IV SCH ×2 (07:59→13:31)
[2019-03-21] MEDS: ACETAMINOPHEN 325 MG TAB PO PRN ×2 (08:10→13:31)
--- NOTE | 2019-03-21 09:36 | Cardiology Progress Note ---
Date of Service March 21, 2019 Assessment & Plan (1) Heart block: She underwent successful implantation of biventricular pacemaker yesterday. Implant was complicated by the poor quality of her target vessels. The current lead is more septal in location then is generally considered ideal. However, reprogramming today does allow from basal LV pacing which should have some beneficial effects and at the very least not be deleterious in the setting of her mildly reduced LV function. The fluttering that she felt over the course of the evening was likely an element of phrenic nerve stimulation. This appears to have resolved with reprogramming changing of the pacing vector. She is certainly stable for discharge from a procedural standpoint. She should refrain from lifting left arm above the shoulder behind the neck for 6 weeks. She should keep the wound dry in the Steri-Strip intact until follow-up in the outpatient setting next week. (2) Dyspnea on exertion: The patient did not appear to have significant obstructive coronary di sease on angiography yesterday. She did have a lesion in the mid LAD which was not felt to be significant. She will continue on her aspirin and atorvastatin. The dose of her lipid agent could be increased. She should refrain from vigorous use of the right hand or wrist for period of 5 days. Subjective This morning the patient complains of some tenderness at the device implant site in the left upper pectoral area. She was ambulatory around the room. She did report some mild dizziness. Her nausea from last night appears to have resolved. She did report some fluttering over the course of the evening. This appears to have resolved after reprogramming of her device this morning. Review of Systems Review of Systems: Per HPI Physical Exam Physical Exam: The device implant site has some mild ecchymosis. No significant hematoma. No drainage. The right radial access site appears to be well perfused. Good perfusion of the right hand. Palpable radial pulse. Results & Data Vital Signs (Past 12 Hours) Vital Signs Temp Pulse Pulse Resp BP Pulse Ox 03/21/19 07:37 36.8 C 66 18 106/68 96 03/21/19 03:33 36.7 C 66 18 117/81 97 03/21/19 00:21 79 03/20/19 23:36 36.5 C 77 17 118/69 95 03/20/19 22:24 36.5 C 75 16 117/75 94 03/20/19 21:46 79 Laboratory Results Abnormal Lab Results 03/20/19 03/20/19 03/21/19 09:01 18:32 05:24 WBC 9.64 RBC 4.39 Hgb 12.5 Hct 37.9 MCV 86.3 MCH 28.5 MCHC 33.0 RDW Std Deviation 42.1 RDW Coeff of Ally 13.2 Plt Count 192 MPV 8.5 Immature Gran % (Auto) 0.1 Neut % (Auto) 63.0 Lymph % (Auto) 22.2 [place] % (Auto) 10.2 Eos % (Auto) 4.0 Baso % (Auto) 0.5 Immature Gran # (Auto) 0.01 Neut # (Auto) 6.07 Lymph # (Auto) 2.14 [place] # (Auto) 0.98 H Eos # (Auto) 0.39 Baso # (Auto) 0.05 Sodium Potassium Chloride Carbon Dioxide Anion Gap BUN Creatinine Est Cr Clr Drug Dosing Est GFR ( Amer) Est GFR (Non-Af Amer) BUN/Creatinine Ratio Glucose Calcium Total Bilirubin AST ALT Alkaline Phosphatase Troponin I 0.026 0.897 H* Total Protein Albumin Globulin Albumin/Globulin Ratio 03/21/19 05:24 WBC RBC Hgb Hct MCV MCH MCHC RDW Std Deviation RDW Coeff of Ally Plt Count MPV Immature Gran % (Auto) Neut % (Auto) Lymph % (Auto) [place] % (Auto) Eos % (Auto) Baso % (Auto) Immature Gran # (Auto) Neut # (Auto) Lymph # (Auto) [place] # (Auto) Eos # (Auto) Baso # (Auto) Sodium 139 Potassium 3.8 Chloride 104 Carbon Dioxide 28 Anion Gap 6.0 BUN 15 Creatinine 0.84 Est Cr Clr Drug Dosing 56.7 Est GFR ( Amer) 81.6 Est GFR (Non-Af Amer) 70.4 BUN/Creatinine Ratio 18.2 Glucose 127 H Calcium 8.6 Total Bilirubin 0.5 AST 23 ALT 22 Alkaline Phosphatase 86 Troponin I Total Protein 6.7 Albumin 3.1 L Globulin 3.6 Albumin/Globulin Ratio 0.9 Diagnostic Findings Chest x-ray obtained this morning revealed stable lead placement without evidence of complication or pneumothorax Device interrogation reveals normal function of all leads. Normal device function.
--- NOTE | 2019-03-21 13:26 | Discharge Summary ---
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 Arellano [facility]. Patient is scheduled to have EP study, cath and pacemaker placement with Dr. Almendarez tomorrow. Patient reports shortness of breath on exertion that started about 6 months ago and got worse about 1 month ago. She saw cardiology about 10 days ago for sick concern of increased shortness of breath on exertion, when walking uphill and lightheadedness. She had an EKG which was abnormal and Dr. Arellano also ordered echo and Holter. She was called tonight to go to the hospital for concern of episodes of 2-1 AV block and complete heart block with left bundle branch block. Currently patient denies any shortness of breath, chest pain, lightheadedness, palpitations. However if she significantly exerts herself, bends over or gets up too quickly she feels lightheaded and short of breath. She also reports history occasional nanosecond chest pain that is sharp in nature and pressure- like chest pain if doing things around the house/exerting herself but it goes away with rest. None at this time Denies any fever, chills, headache, abdominal pain, nausea, vomiting, diarrhea, constipation, hematochezia, melena, hematuria and dysuria Social history: Patient quit smoking in 2005, smoked for 35 years 1 pack/day, drinks 1 glass of wine once a month, no recreational drug use Surgical history: History of cholecystectomy and cataract surgery Principal Diagnosis Heart block Discharge Exam Constitutional WD/WN, vitals as above Respiratory normal respiratory effort, lungs clear to auscultation Cardiovascular RRR, no murmur, no edema Gastrointestinal (Abdomen) Inspection/Auscultation: abdomen normal to inspection and normal bowel sounds; abdomen not distended Percussion/Palpation: abdomen soft; abdomen nontender Musculoskeletal no cyanosis or clubbing, extremities motor strength 5/5 Skin no rashes, warm and dry Neurologic moves all extremities and awake Psychiatric A+Ox3, euthymic affect Discharge Data Allergies Allergy/AdvReac Type Severity Reaction Status Date / Time levofloxacin Allergy Mild dizzy Verified 09/05/18 08:01 Penicillins Allergy Unknown UNKNOWN Verified 09/05/18 08:01 erythromycin base AdvReac Intermediate BRUISES ON Verified 09/05/18 08:01 LEGS Consultations 03/19/19 20:13 Consult Cardiology Routine Procedures Performed Operation Date: 03/20/19 14:00 Actual Procedures p Cath, Left with Cors and Vent - Eduin Almnedarez MD s Cineradiography w/Routine Exam - Eduin Almendarez MD s Pacer with A/V Leads (Dual) - Eduin Almendarez MD s Lead LV (No Priopr Implant) - Eduin Almendarez MD Ordered Studies 03/20/19 12:56 CL Cath Imgs for PACS use only Routine Hospital Course (1) Heart block: Troponins wnl x 2 and then mild increase after heart cath EK, normal sinus rhythm with first-degree heart block FL 258, LBBB QTc 452; concern for ST elevation in V3 and V4 EKG February 28 at [facility] outpatient clinic: Sinus LBBB, poor R wave progression throughout precordium Echo 03/05/2019 at [facility]: EF 45%, mild global hypokinesis with thinning and akinesis mid to distal anterior septum and septum and apex out of proportion to just LBBB, moderate aortic insufficiency Holter monitor 03/14/19: Basic rhythm first-degree AV block and sinus rhythm, periods of WenkeBach 2-1 ratio AV block and complete heart block with slow escape rhythm LBBB -with episodes of shortness of breath and palpitation; periods of blocked PACs, rare PVCs, ventricular pairs, triplets and bigeminy occasional PACs - Heparin drip discontinued per cardiology - Cardiology consulted: Dr. Almendarez - Diagnostic cath 03/20 - 50-60% stenosis in between the 1st and 2nd diagonal branches of the LAD - cath without significant disease - Consider increasing statin per cardiology, ASA increased to 325 - dual chamber pacer placed 03/20 (2) Hypothyroidism: Continue home levothyroxine (3) Hypertension: Resume aspirin and benazepril (4) Hyperlipidemia: Continue home atorvastatin (5) Diabetes mellitus, type 2: DM2 Hold home metformin and Tresiba - resume metformin tomorrow evening due to contrast from cath [facility] inpatient (6) GERD (gastroesophageal reflux disease): continue home pantoprazole (7) DVT prophylaxis: SCDs Total Time Total Time Spent Total Time Spent (In Minutes): greater than 30 minutes Discharge Plan Discharge Items Patient Disposition: Home - Self-Care Reason For Visit: HEART BLOCK Discharge Diagnosis: Heart Block Activity: Per Instructions section Non-emergency contact: Primary Care Provider Call non-emergency contact if: you have any medication questions Follow-up/Referrals: Dora Lara MD [Primary Care Provider] - Diet: Heart Healthy Addtl Attending Provider Instructions: (1) Heart block/sob: You had dual chamber pacemaker placement and cardiac catheterization on 03/20. Your catheterization did not show significant obstructive coronary disease. There is a lesion in your left anterior descending artery (LAD) that was felt to be insignificant and did not require stenting. -Refrain from lifting your left arm above the shoulder or behind the neck for 6 weeks. You should keep the wound dry and the Steri-Strip intact until follow-up in the outpatient setting next week. You should refrain from vigorous use of the right hand or wrist for a period of 5 days. - You should continue aspirin and atorvastatin. Your aspirin dosing has been increased. Please discuss increasing your atorvastatin with your primary care provider. - Please wait until tomorrow evening to resume your metformin as you need 48 hours after you have had contrast dye before taking metformin due to potential interaction resulting in harm to your kidneys. (2) Hypothyroidism: Continue home levothyroxine (3) Hypertension: Continue benazepril (4) Hyperlipidemia: Continue home atorvastatin - discuss increasing with your primary care provider (5) Diabetes mellitus, type 2: Resume Tresiba - metformin on hold for 48 hours following cardiac cathete rization (6) GERD (gastroesophageal reflux disease): continue home pantoprazole Pending Studies at Discharge: No Stand-Alone Forms: My [facility] [place], Smoking Cessation Medications and DC Order Prescriptions: New aspirin 325 mg Tablet,Delayed Release (Dr/Ec) 325 mg PO QAM Qty: 30 RF: 0 oxycodone 5 mg Tablet 5 mg PO Q6H PRN (Reason: pain) Qty: 10 RF: 0 Continued atorvastatin 20 mg tablet 20 mg PO HS RF: 0 nitroglycerin 0.4 mg tablet, sublingual 0.4 mg sublingual UNKNOWN PRN (Reason: Chest Pain) RF: 0 benazepril 10 mg Tablet 10 mg PO HS RF: 0 PreserVision AREDS-2 [phone]-mg Capsule 1 tab PO BID RF: 0 metformin [Glucophage] 1,000 mg Tablet 1,000 mg PO Q12 RF: 0 omeprazole 20 mg Tablet,Delayed Release (Dr/Ec) 20 mg PO QAM RF: 0 levothyroxine 112 mcg Tablet 112 mcg PO DAILY RF: 0 Tresiba FlexTouch U-100 100 unit/mL (3 mL) Insulin Pen 22 unit subcut BID RF: 0 Discontinued aspirin 81 mg Tablet,Delayed Release (Dr/Ec) 81 mg PO HS RF: 0 Discharge Orders: Discharge Order (Routine); Ordered 03/21/19 Ordered By: Kanchan Zavala/Other Patient Handouts: Pacemakers, Implantation Pacemaker Dc Admission Data Admit Date/Time: 03/19/19 19:10 Attending Provider: Jared Bower Admit Provider: Baljit Galavn Primary Care Provider: Dora Lara Other Providers: Eduin Almendarez Other Interventions: Discharge Summary Assessment (RN) Last Done: 03/21/19 13:45 DC Date/Time DO NOT enter until pt leaves facility: 03/21/19 14:34 Supervising Physician Co-Signing Physician Notes I supervised Kanchan Mcnamara NP on this patient's care. I examined the patient today independently of her. I discussed the plan of care with her with the plan being as written in her note except for any following changes/exceptions: None. Some mild pain in the area of the pacemaker with some mild bruising, but otherwise in no distress.
--- NOTE | 2019-03-28 06:19 | Coding Query ---
CODING QUERY To promote full compliance with coding requirements relating to patient care, provider participation is requested in all cases of eap counselor uncertainty. Please assist us with the question(s) below: Coding Question(s): Patient admitted with heart block and possible STEMI with dyspnea on exertion. Heart catheterization revealed minimal CAD. BiVentricular pacemaker on 03/20 . Seeking to clarify heart block. Documentation states " baseline conduction pacing with high degree AV block. Symptomatic non-reversible AV node dysfunction". Please document, if known or suspected, the type of AV block ( ie complete, first, second etc.) Thanks for your help! Ari Bustamante [facility] Physician's Response(s): Linda 2-1 ratio AV block and complete heart block added in addendum on discharge summary Principal Diagnosis: "that condition established after study, to be chiefly responsible for occasioning the admission of the patient to the hospital for care." Co-Existing Principal Diagnosis: "when two or more diagnoses equally meet the criteria for principal diagnosis as determined by the circumstances of admission, diagnostic work up, and/or therapy provided, and the Alphabetic Index, Tabular List, or another coding guideline does not provide sequencing direction, any one of the diagnoses may be sequenced first." "When the physician has documented what appears to be a current diagnosis in the body of the record, but has not included the diagnosis in the final diagnostic statement, the physician should be asked whether the diagnosis should be added." (Source Coding Clinic 2 QTR90. p3-4) YESSENIA
== END 2019-03-21 14:34 | disposition home or self-care (01) | DRG 244 ==
LOC: 2S 19:10 → SUATTDRO 19:10

== ENCOUNTER 2020-08-02 19:16 | Observation (INO) ==
[2020-08-02] MEDS ORDERED: ASPIRIN CHEW 324 MG PO STA (20:03)
[2020-08-02 20:12] LABS: Basophils # (auto) 0.05 K/uL (0-0.2); Basophils % (auto) 0.5 %; Eosinophils # (auto) 0.17 K/uL (0-0.5); Eosinophils % (auto) 1.6 %; Hematocrit (blood only) 42.1 % (37-47); Hemoglobin 14.2 g/dL (12.0-16.0); Immature Granulocytes # (auto) 0.02 K/uL (0.00-0.02); Immature Granulocytes % (auto) 0.2 %; Lymphocytes # (auto) 2.24 K/uL (1.2-3.4); Lymphocytes % (auto) 21.1 %; Mean Corpuscular Hemoglobin 30.1 pg (25-34); Mean Corpuscular Hgb Conc 33.7 g/dL (32-36); Mean Corpuscular Volume 89.4 fL (80-100); Mean Platelet Volume 8.6 fL (7.4-10.4); Monocytes # (auto) 0.82 K/uL (0.11-0.59); Monocytes % (auto) 7.7 %; Neutrophils # (auto) 7.33 K/uL (1.4-6.5); Neutrophils % (auto) 68.9 %; Platelet Count 261 K/uL (130-400); RDW Coefficient of Variation 14.9 % (11.5-14.5); RDW Standard Deviation 48.1 fL (36.4-46.3); Red Blood Count 4.71 M/uL (4.2-5.4); White Blood Count 10.63 K/uL (4.8-10.8)
[2020-08-02 20:25] LABS: Prothrombin Time 9.9 Seconds (9.0-12.0)
[2020-08-02 20:35] LABS: Alanine Aminotransferase 34 U/L (12-78); Albumin Level 3.5 gm/dl (3.4-5.0); Alkaline Phosphatase 95 U/L (45-117); Aspartate Aminotransferase 24 U/L (15-37); BUN Creatinine Ratio 16.4 (10-20); Bilirubin,Total 0.2 mg/dl (0.2-1); Blood Urea Nitrogen 14 mg/dl (7-18); Calcium 8.7 mg/dl (8.5-10.1); Carbon Dioxide 26 mmol/L (21-32); Chloride 108 mmol/L (98-107); Creatinine Clr Calc Pharmacy 56.7 ml/min; Est GFR (African American) 78.8; Globulin 3.7 gm/dl (2.5-4.0); Glucose 182 mg/dl (70-99); Lipase 125 U/L (73-393); Potassium 3.8 mmol/L (3.5-5.1); Sodium 139 mmol/L (136-145); Total Protein 7.2 gm/dl (6.4-8.2); Troponin I < 0.015 ng/ml (0-0.045)
[2020-08-02 21:15] LABS: Influenza A virus by PCR Negative (Neg); Influenza B virus by PCR Negative (Neg); RSV by PCR Negative (Neg); SARS CoV2 RNA(COVID-19) InHosp NEGATIVE (Negative)
--- NOTE | 2020-08-02 21:17 | Emergency Department Note ---
Impression & Plan Atypical chest pain ED Provider Note Provider: Sharan Burden MD DATE OF SERVICE: 08/02/2020 CHIEF COMPLAINT: Chest pressure, right arm pressure, low back pain, dyspnea on exertion HISTORY OF PRESENT ILLNESS: Patient is a 70-year-old female past medical history of PMR, type 2 diabetes, hypothyroidism, and hypertension presenting today complaining over the past week of developing some increased fatigue with exertion and chest tightness. She states she also had a little bit of generalized weakness. Denies fever. States she had 2 doses of the Covid vaccine so far. States she did follow-up with her shake maker this past and discussed the symptoms. Has been scheduled for cardiac catheterization this coming Tuesday for further evaluation. States today her symptoms seem to have worsened and she began to feel a bit sweaty and have a little bit of lower back pain. Denies any abdominal pain or nausea. States some pressure through the chest into the right arm to some degree although this is improved compared to earlier this evening. Patient states he went to be sure she was not having a heart issue and thus came here for evaluation today. Patient states he takes baby aspirin daily. Patient denies any speech issues or visual change. States she has a little bit of slight numbness in her right thigh but does feel gross touch. Denies leg swelling. Denies headache or dizziness. REVIEW OF SYSTEMS: A total of 10 review of systems was obtained and negative except as stated above in the HPI. PAST MEDICAL HISTORY: As noted above MEDICATIONS: Reviewed home medication list SOCIAL HISTORY: Lives at home, former smoker PHYSICAL EXAM: GENERAL: alert and oriented in no acute distress on stretcher Head: normocephalic and atraumatic EYES: No injection, discharge or icterus. NECK: Trachea midline. Supple. LUNGS: Airway patent. No retractions. Breath sounds clear with good air entry bilaterally. HEART: Regular rate and rhythm. No chest wall tenderness with a left upper chest wall pacemaker appreciated. ABDOMEN: Soft and non-tender, without guarding or rebound. BACK: Some mild lower lumbar tenderness SKIN: Acyanotic, warm without rash. Some slight perspiration on the forehead is appreciated. EXTREMITIES: Without swelling, tenderness or deformity NEUROLOGICAL: No focal deficits. No aphasia. No facial droop or slurred speech. Normal strength and tone in the extremities. Sensation to gross touch normal. EK bpm AV paced rhythm with PVC present. No acute ST segment elevation noted with inferior lateral ST flattening. Similar although PVCs are present today to March 21, 2019. CONTINUOUS CARDIAC MONITORING: was ordered and showed a heart rate of 60s-70s bpm bpm in paced rhythm Patient's laboratory studies and imaging reviewed. Differential includes Cardiac ischemia, aortic dissection, pulmonary embolism, pneumothorax, pneumonia, pericarditis, myocarditis, esophageal rupture, GERD, cholecystitis, pancreatitis, musculoskeletal, as well as other pathologies. IMPRESSION/MEDICAL DECISION MAKING: Patient story concerning for atypical chest discomfort. Has upcoming catheterization scheduled in several days but no with worsening of symptoms today. EKG without acute change in pacemaker appears be working according to t he interrogation. Troponin is not elevated here initially. Covid test is negative and x-ray without significant pulmonary edema or pneumonia noted. Blood work noted without significant findings otherwise. Not indicative of hepatitis, pancreatitis, renal dysfunction, or significant electrolyte ab normality. Given additional aspirin for full dose today. On reevaluation the patient states her symptoms have moderated some but discussed with her significant concerns given history of catheterization 2018 with 50-60% stenosis that is likely progressed was not intervened on previously. Discussed given her findings I recommend further observation here in the hospital. She was in agreement. The hospitalist was contacted. Not having significant starting signs for spinal cord impingement or infective symptoms. Not having significant findings at this time concerning for acute CVA, meningiti s, or intracranial bleed. Patient is a benign abdomen on exam not having lateralizing back pain. Doubt nephrolithiasis, AAA, cholecystitis, appendicitis, perforation, or intra-abdominal surgical emergency. Likely more muscular back pain as it is atypical location for referred chest discomfort. DIAGNOSIS: Chest pressure DISPOSITION: Hospitalist will evaluate Patient was agreeable with this plan. Past Med/Surg History Medical History (Updated 08/03/20 @ 00:21 by Sharan Burden M.D.) Branch retinal artery occlusion of right eye Diabetes mellitus, type 2 GERD (gastroesophageal reflux disease) Hyperlipidemia Hypertension Hypothyroidism Surgical History History of bilateral cataract extraction History of cholecystectomy History of colonoscopy History of esophagogastroduodenoscopy (EGD) History of strabismus surgery left eye History of tonsillectomy and adenoidectomy History of tooth extraction upper and lower dentures History of wisdom tooth extraction Hx of left breast biopsy x2--benign Family History Mother Family history of stomach cancer Other No family history of adverse response to anesthesia Social History Smoking Status: Former smoker Second Hand Exposure: Yes (parents smoked); Hx Alcohol Use: Yes Alcohol type: wine Hx Substance Use: No Preferred Language: Slovenian Communication Ability: Effective Fringe Knotter Required: No Beliefs That Will Affect Care: None Current Living Situation: Spouse and Family Current Living Situation Comment: Lives with and daughter Feels Safe at Home: Yes Assistive Devices: Denture - Upper, Denture - Lower and Glasses Allergies Allergies Allergy/AdvReac Type Severity Reaction Status Date / Time levofloxacin Allergy Mild dizzy Verified 08/02/20 20:05 Penicillins Allergy Unknown UNKNOWN Verified 08/02/20 20:05 erythromycin base AdvReac Intermediate BRUISES ON Verified 08/02/20 20:05 LEGS Home Meds Home Medications Medication Instructions Recorded Confirmed PreserVision AREDS-2 1 tab PO BID 08/07/18 08/02/20 omeprazole 20 mg PO QAM 08/07/18 08/02/20 nitroglycerin 0.4 mg SUBLINGUAL UNKNOWN PRN 03/19/19 08/02/20 albuterol sulfate 2 puff INHALATION Q6 PRN 08/02/20 08/02/20 aspirin 81 mg PO DAILY 08/02/20 08/02/20 cholecalciferol (vitamin D3) 25 mcg PO DAILY 08/02/20 08/02/20 [Vitamin D3] coenzyme Q10 [CoQ-10] 200 mg PO DAILY 08/02/20 08/02/20 ferrous sulfate 325 mg PO DAILY 08/02/20 08/02/20 folic acid 1 mg PO DAILY 08/02/20 08/02/20 insulin degludec [Tresiba 24 unit SUBCUT DAILY 08/02/20 08/02/20 FlexTouch U-100] levothyroxine 137 mcg PO DAILYBB 08/02/20 08/02/20 lisinopril 10 mg PO DAILY 08/02/20 08/02/20 metformin 1,000 mg PO BID 08/02/20 08/02/20 methotrexate sodium [Methotrexate 15 mg PO WK 08/02/20 08/02/20 (Anti-Rheumatic)] prednisone 0 mg PO DAILY 08/02/20 08/02/20 repaglinide 0.5 mg PO DIRECTED 08/02/20 08/02/20 Results & Data (ED) Vital Signs Vital Signs - 24 hr 08/02/20 19:17 08/02/20 21:15 08/02/20 22:00 Temperature 36.2 C L Temperature Source Temporal Artery Scan Pulse Rate 60 60 Pulse Rate [Finger] 65 Pulse Rate from SpO2 Sensor 60 Pulse Rhythm [Finger] Regular Pulse Strength [Finger] Normal Respiratory Rate 18 18 23 Respiratory Effort / Characteristics Non-Labored Spontaneous Respiratory Depth Normal Normal Respiratory Pattern Regular Blood Pressure 206/91 H 141/66 H Blood Pressure [Right Arm] 169/69 H Blood Pressure Mean 129 91 Blood Pressure Mean [Right Arm] 102 Blood Pressure Position [Right Arm] Lying Pulse Oximetry 97 94 96 Oxygen Delivery Method Room Air Room Air Sepsis New/Unexplained Change in Mental Status N/A Sepsis Action Taken by Nursing No Action Required 08/02/20 22:30 08/02/20 23:00 08/03/20 00:22 Temperature Temperature Source Pulse Rate 60 62 60 Pulse Rate [Finger] Pulse Rate from SpO2 Sensor 62 62 60 Pulse Rhythm [Finger] Pulse Strength [Finger] Respiratory Rate 20 18 12 Respiratory Effort / Characteristics Respiratory Depth Respiratory Pattern Blood Pressure 151/78 H 174/72 H 172/78 H Blood Pressure [Right Arm] Blood Pressure Mean 102 106 109 Blood Pressure Mean [Right Arm] Blood Pressure Position [Right Arm] Pulse Oximetry 97 96 98 Oxygen Delivery Method Sepsis New/Unexplained Change in Mental Status Sepsis Action Taken by Nursing 08/03/20 00:30 Temperature Temperature Source Pulse Rate 60 Pulse Rate [Finger] Pulse Rate from SpO2 Sensor 60 Pulse Rhythm [Finger] Pulse Strength [Finger] Respiratory Rate 16 Respiratory Effort / Characteristics Respiratory Depth Respiratory Pattern Blood Pressure 159/77 H Blood Pressure [Right Arm] Blood Pressure Mean 104 Blood Pressure Mean [Right Arm] Blood Pressure Position [Right Arm] Pulse Oximetry 97 Oxygen Delivery Method Sepsis New/Unexplained Change in Mental Status Sepsis Action Taken by Nursing Laboratory Data Result diagrams: 08/02/20 19:55 08/02/20 19:55 Lab Results 08/02/20 08/02/20 08/02/20 Range/Units 19:55 19:55 19:55 WBC 10.63 (4.8-10.8) K/uL RBC 4.71 (4.2-5.4) M/uL Hgb 14.2 (12.0-16.0) g/dL Hct 42.1 (37-47) % MCV 89.4 (80-100) fL MCH 30.1 (25-34) pg MCHC 33.7 (32-36) g/dL RDW Std Deviation 48.1 H (36.4-46.3) fL RDW Coeff of Ally 14.9 H (11.5-14.5) % Plt Count 261 (130-400) K/uL MPV 8.6 (7.4-10.4) fL Immature Gran % (Auto) 0.2 % Neut % (Auto) 68.9 % Lymph % (Auto) 21.1 % [place] % (Auto) 7.7 % Eos % (Auto) 1.6 % Baso % (Auto) 0.5 % Neut # (Auto) 7.33 H (1.4-6.5) K/uL Lymph # (Auto) 2.24 (1.2-3.4) K/uL [place] # (Auto) 0.82 H (0.11-0.59) K/uL Eos # (Auto) 0.17 (0-0.5) K/uL Baso # (Auto) 0.05 (0-0.2) K/uL Immature Gran # (Auto) 0.02 (0.00-0.02) K/uL PT 9.9 (9.0-12.0) Seconds INR 1.0 (0.9-1.1) APTT (21.0-31.0) Seconds PTT Ratio Sodium 139 (136-145) mmol/L Potassium 3.8 (3.5-5.1) mmol/L Chloride 108 H (98-107) mmol/L Carbon Dioxide 26 (21-32) mmol/L Anion Gap 6.0 (3-11) BUN 14 (7-18) mg/dl Creatinine 0.86 (0.6-1.2) mg/dl Est Cr Clr Drug Dosing 56.7 ml/min Est GFR ( Amer) 78.8 Est GFR (Non-Af Amer) 68.0 BUN/Creatinine Ratio 16.4 (10-20) Glucose 182 H (70-99) mg/dl Calcium 8.7 (8.5-10.1) mg/dl Magnesium (1.8-2.4) mg/dl Total Bilirubin 0.2 (0.2-1) mg/dl AST 24 (15-37) U/L ALT 34 (12-78) U/L Alkaline Phosphatase 95 (45-117) U/L Troponin I < 0.015 (0-0.045) ng/ml Total Protein 7.2 (6.4-8.2) gm/dl Albumin 3.5 (3.4-5.0) gm/dl Globulin 3.7 (2.5-4.0) gm/dl Albumin/Globulin Ratio 1.0 (0.9-2) Lipase 125 (73-393) U/L TSH (0.300-4.500) uIu/ml Specimen Hemolysis COVID-19 Eval Order SARS-CoV-2 (PCR) (Negative) Influenza Type A (PCR) (Neg) Influenza Type B (PCR) (Neg) RSV (RT-PCR) (Neg) 08/02/20 08/02/20 08/02/20 Range/Units 19:55 20:20 20:20 WBC (4.8-10.8) K/uL RBC (4.2-5.4) M/uL Hgb (12.0-16.0) g/dL Hct (37-47) % MCV (80-100) fL MCH (25-34) pg MCHC (32-36) g/dL RDW Std Deviation (36.4-46.3) fL RDW Coeff of Ally (11.5-14.5) % Plt Count (130-400) K/uL MPV (7.4-10.4) fL Immature Gran % (Auto) % Neut % (Auto) % Lymph % (Auto) % [place] % (Auto) % Eos % (Auto) % Baso % (Auto) % Neut # (Auto) (1.4-6.5) K/uL Lymph # (Auto) (1.2-3.4) K/uL [place] # (Auto) (0.11-0.59) K/uL Eos # (Auto) (0-0.5) K/uL Baso # (Auto) (0-0.2) K/uL Immature Gran # (Auto) (0.00-0.02) K/uL PT (9.0-12.0) Seconds INR (0.9-1.1) APTT 23.6 (21.0-31.0) Seconds PTT Ratio 0.9 Sodium (136-145) mmol/L Potassium (3.5-5.1) mmol/L Chloride (98-107) mmol/L Carbon Dioxide (21-32) mmol/L Anion Gap (3-11) BUN (7-18) mg/dl Creatinine (0.6-1.2) mg/dl Est Cr Clr Drug Dosing ml/min Est GFR ( Amer) Est GFR (Non-Af Amer) BUN/Creatinine Ratio (10-20) Glucose (70-99) mg/dl Calcium (8.5-10.1) mg/dl Magnesium (1.8-2.4) mg/dl Total Bilirubin (0.2-1) mg/dl AST (15-37) U/L ALT (12-78) U/L Alkaline Phosphatase (45-117) U/L Troponin I (0-0.045) ng/ml Total Protein (6.4-8.2) gm/dl Albumin (3.4-5.0) gm/dl Globulin (2.5-4.0) gm/dl Albumin/Globulin Ratio (0.9-2) Lipase (73-393) U/L TSH (0.300-4.500) uIu/ml Specimen Hemolysis COVID-19 Eval Order CovFluRsv at [facility] SARS-CoV-2 (PCR) NEGATIVE (Negative) Influenza Type A (PCR) Negative (Neg) Influenza Type B (PCR) Negative (Neg) RSV (RT-PCR) Negative (Neg) 08/02/20 Range/Units 23:01 WBC (4.8-10.8) K/uL RBC (4.2-5.4) M/uL Hgb (12.0-16.0) g/dL Hct (37-47) % MCV (80-100) fL MCH (25-34) pg MCHC (32-36) g/dL RDW Std Deviation (36.4-46.3) fL RDW Coeff of Ally (11.5-14.5) % Plt Count (130-400) K/uL MPV (7.4-10.4) fL Immature Gran % (Auto) % Neut % (Auto) % Lymph % (Auto) % [place] % (Auto) % Eos % (Auto) % Baso % (Auto) % Neut # (Auto) (1.4-6.5) K/uL Lymph # (Auto) (1.2-3.4) K/uL [place] # (Auto) (0.11-0.59) K/uL Eos # (Auto) (0-0.5) K/uL Baso # (Auto) (0-0.2) K/uL Immature Gran # (Auto) (0.00-0.02) K/uL PT (9.0-12.0) Seconds INR (0.9-1.1) APTT (21.0-31.0) Seconds PTT Ratio Sodium (136-145) mmol/L Potassium (3.5-5.1) mmol/L Chloride (98-107) mmol/L Carbon Dioxide (21-32) mmol/L Anion Gap (3-11) BUN (7-18) mg/dl Creatinine (0.6-1.2) mg/dl Est Cr Clr Drug Dosing ml/min Est GFR ( Amer) Est GFR (Non-Af Amer) BUN/Creatinine Ratio (10-20) Glucose (70-99) mg/dl Calcium (8.5-10.1) mg/dl Magnesium 2.2 (1.8-2.4) mg/dl Total Bilirubin (0.2-1) mg/dl AST (15-37) U/L ALT (12-78) U/L Alkaline Phosphatase (45-117) U/L Troponin I < 0.015 (0-0.045) ng/ml Total Protein (6.4-8.2) gm/dl Albumin (3.4-5.0) gm/dl Globulin (2.5-4.0) gm/dl Albumin/Globulin Ratio (0.9-2) Lipase (73-393) U/L TSH 0.961 (0.300-4.500) uIu/ml Specimen Hemolysis COVID-19 Eval Order SARS-CoV-2 (PCR) (Negative) Influenza Type A (PCR) (Neg) Influenza Type B (PCR) (Neg) RSV (RT-PCR) (Neg) Administered Medications Discontinued Medications Aspirin (Aspirin Chew 324 Mg) 243 mg PO NOW STA Stop: 08/02/20 20:04 Last Admin: 08/02/20 20:19 Dose: 243 mg Documented by: [id number] Discharge Plan Visit Data Chief Complaint: Cardiac Assessment Stated Complaint: CHEST [id number] IN RIGHT ARM ED Provider: Sharan Burden Discharge Problem: Atypical chest pain Patient Disposition: Being Evaluated by Hospitalist Forms Stand Alone Forms: My [facility] Prescriptions Prescriptions: No Action nitroglycerin 0.4 mg tablet, sublingual 0.4 mg sublingual UNKNOWN PRN (Reason: Chest Pain) RF: 0 PreserVision AREDS-2 [id number] Capsule 1 tab PO BID RF: 0 omeprazole 20 mg Tablet,Delayed Release (Dr/Ec) 20 mg PO QAM RF: 0 levothyroxine 137 mcg Tablet 137 mcg PO DAILYBB RF: 0 aspirin 81 mg Tablet,Delayed Release (Dr/Ec) 81 mg PO DAILY RF: 0 methotrexate sodium [Methotrexate (Anti-Rheumatic)] 2.5 mg Tablet 15 mg PO WK RF: 0 repaglinide 0.5 mg tablet 0.5 mg PO DIRECTED RF: 0 prednisone 1 mg Tablet 0 mg PO DAILY RF: 0 ferrous sulfate 325 mg (65 mg iron) Tablet 325 mg PO DAILY RF: 0 lisinopril 10 mg Tablet 10 mg PO DAILY RF: 0 folic acid 1 mg Tablet 1 mg PO DAILY RF: 0 albuterol sulfate 90 mcg/actuation HFA aerosol inhaler 2 puff INHALATION Q6 PRN (Reason: Shortness Of Breath) RF: 0 cholecalciferol (vitamin D3) [Vitamin D3] 25 mcg (1,000 unit) Capsule 25 mcg PO DAILY RF: 0 coenzyme Q10 [CoQ-10] 100 mg Capsule 200 mg PO DAILY RF: 0 metformin 500 mg Tablet Extended Release 24hr 1,000 mg PO BID RF: 0 Tresiba FlexTouch U-100 100 unit/mL (3 mL) Insulin Pen 24 unit SUBCUT DAILY RF: 0 Referrals Referrals: Veronica Ferguson MD [Primary Care Provider] -
[2020-08-02 22:28] LABS: Partial Thromboplastin Ratio 0.9; Partial Thromboplastin Time 23.6 Seconds (21.0-31.0)
[2020-08-02] MEDS ORDERED: lisinopril 5 MG TAB PO STA (23:27)
--- NOTE | 2020-08-02 23:40 | History & Physical Report ---
Date of Service August 02, 2020 Assessment & Plan (1) Chest pain: Multifactorial : Uncontrolled hypertension Musculoskeletal component given reproducibility Anxiety contributory Rule out ACS, hx nonocclusive CAD as per records chronic diastolic heart failure (EF 60%, TTE 2019), patient euvolemic complete heart block status post PPM, paced rhythm history LBBB hyperlipidemia on statin Rx IRAJ on CPAP DM2 insulin requiring, well-controlled as of recent hemoglobin A1c of 6.28 June 2020 PMR on chronic steroid therapy hypothyroidism, euthyroid as of today's TSH Leg cramps rule out DVT, PAD past tobacco abuse. OBS PCU Titrate lisinopril Analgesia Anxiolytic as needed Follow troponin Cardiology consult RE chest pain, history of CAD LE venous Dopplers rule out DVT ABIs Re: Crampy leg pain rule out PAD Basal insulin, ISS BG goal [id number], carb count coverage DVT prophylaxis per Lovenox subcu Full code Text document was generated using [employer] voice recognition software. It may contain grammatical or spelling errors. Kindly contact undersigned for clarification of any documentation item in question. History of Present Illness Chief Complaint: Chest pressure Primary Care Provider: Veronica Ferguson MD History obtained from patient and records. Medical history significant for chronic diastolic heart failure (EF 60%, TTE 2019), complete heart block status post PPM, nonocclusive CAD as per records, history LBBB, hypertension, hyperlipidemia, IRAJ on CPAP, DM2 insulin requiring, PMR on chronic steroid therapy, hypothyroidism, IgA deficiency as per records, Lyme disease as per records, past tobacco abuse. Last confinement March 2019 for complete heart block status post PPM. Few weeks history of intermittent chest discomfort occasionally going to both arms with exertional shortness of breath. No cough symptoms, no fluid retention, no headache, no unusual stress at home. Occasional leg cramps as per patient. No inordinate OTC NSAID intake. Compliant with CPAP and home meds. Denies dietary indiscretion. Does not check blood pressure at home. Patient seen at [facility] EPS specialist office few days ago. No arrhythmias on pacemaker interrogation as per documentation. Patient scheduled for outpatient diagnostic cardiac catheterization at [facility] next week to rule out ischemia as etiology for symptoms. Patient later on noted worsening symptoms along with achy low back pain without leg weakness, fever, incontinence symptoms at home. Medical History as above Surgical History : Cholecyst ectomy, tonsillectomy, cataract surgery, PPM Family History : Dementia, stomach cancer, heart disease, mood disorder Personal/Social history : Past tobacco abuse, occasional EtOH intake, retired social work coordinator Allergies Allergy/AdvReac Type Severity Reaction Status Date / Time levofloxacin Allergy Mild dizzy Verified 08/02/20 20:05 Penicillins Allergy Unknown UNKNOWN Verified 08/02/20 20:05 erythromycin base AdvReac Intermediate BRUISES ON Verified 08/02/20 20:05 LEGS Home Medications Medication Instructions Recorded Confirmed Type PreserVision AREDS-2 1 tab PO BID 08/07/18 08/02/20 History omeprazole 20 mg PO QAM 08/07/18 08/02/20 History nitroglycerin 0.4 mg SUBLINGUAL UNKNOWN PRN 03/19/19 08/02/20 History albuterol sulfate 2 puff INHALATION Q6 PRN 08/02/20 08/02/20 History aspirin 81 mg PO DAILY 08/02/20 08/02/20 History cholecalciferol (vitamin D3) 25 mcg PO DAILY 08/02/20 08/02/20 History [Vitamin D3] coenzyme Q10 [CoQ-10] 200 mg PO DAILY 08/02/20 08/02/20 History ferrous sulfate 325 mg PO DAILY 08/02/20 08/02/20 History folic acid 1 mg PO DAILY 08/02/20 08/02/20 History insulin degludec [Tresiba 24 unit SUBCUT DAILY 08/02/20 08/02/20 History FlexTouch U-100] levothyroxine 137 mcg PO DAILYBB 08/02/20 08/02/20 History lisinopril 10 mg PO DAILY 08/02/20 08/02/20 History metformin 1,000 mg PO BID 08/02/20 08/02/20 History methotrexate sodium [Methotrexate 15 mg PO WK 08/02/20 08/02/20 History (Anti-Rheumatic)] prednisone 0 mg PO DAILY 08/02/20 08/02/20 History repaglinide 0.5 mg PO DIRECTED 08/02/20 08/02/20 History Past Med/Surg History Medical History (Updated 08/03/20 @ 11:14 by Jeff Lopez DO) Branch retinal artery occlusion of right eye Diabetes mellitus, type 2 GERD (gastroesophageal reflux disease) Hyperlipidemia Hypertension Hypothyroidism Surgical History History of bilateral cataract extraction History of cholecystectomy History of colonoscopy History of esophagogastroduodenoscopy (EGD) History of strabismus surgery left eye History of tonsillectomy and adenoidectomy History of tooth extraction upper and lower dentures History of wisdom tooth extraction Hx of left breast biopsy x2--benign Family History Mother Family history of stomach cancer Other No family history of adverse response to anesthesia Social History Smoking Status: Former smoker Second Hand Exposure: Yes (parents smoked); Hx Alcohol Use: Yes Alcohol type: wine Hx Substance Use: No Preferred Language: Wolof Communication Ability: Effective Scout Required: No Beliefs That Will Affect Care: None Current Living Situation: Spouse Current Living Situation Comment: Lives with and daughter Other Information That Helps Us Care for You: No Feels Safe at Home: Yes Safety Concerns: Feels Safe At This Time Assistive Devices: None Review of Systems Review of Systems: As per HPI, all 10 systems reviewed, all other ROS negative Physical Exam Physical Exam: GENERAL: Anxious, no respiratory distress SKIN: Normal color, warm HEENT: [place] palpebral conjunctivae, no ptosis, dry buccal mucosa NECK : Supple, short neck, no tenderness CHEST : Decreased breath sounds, anterior chest wall tenderness HEART : RRR, no obvious murmurs ABDOMEN: Some distention, nontender BACK : Minimal low back tenderness EXTREMITIES : Minimal LE swelling, minimal LE tenderness, no other conspicuous deformities noted NEUROLOGIC : Coherent, no facial asymmetry, no other gross focality Results & Data Results & Data ([facility]) Vital Signs (Past 12 Hours) Vital Signs Temp Pulse Pulse Resp BP BP Pulse Ox 08/02/20 23:00 62 18 174/72 H 96 08/02/20 22:30 60 20 151/78 H 97 08/02/20 22:00 60 23 141/66 H 96 08/02/20 21:15 65 18 169/69 H 94 08/02/20 19:17 36.2 C L 60 18 206/91 H 97 Laboratory Results Laboratory Results WBC 10.63 K/uL (4.8-10.8) 08/02/20 19:55 RBC 4.71 M/uL (4.2-5.4) 08/02/20 19:55 Hgb 14.2 g/dL (12.0-16.0) 08/02/20 19:55 Hct 42.1 % (37-47) 08/02/20 19:55 MCV 89.4 fL (80-100) 08/02/20 19:55 MCH 30.1 pg (25-34) 08/02/20 19:55 MCHC 33.7 g/dL (32-36) 08/02/20 19:55 RDW Std Deviation 48.1 fL (36.4-46.3) H 08/02/20 19:55 RDW Coeff of [place] 14.9 % (11.5-14.5) H 08/02/20 19:55 Plt Count 261 K/uL (130-400) 08/02/20 19:55 MPV 8.6 fL (7.4-10.4) 08/02/20 19:55 Immature Gran % (Auto) 0.2 % 08/02/20 19:55 Neut % (Auto) 68.9 % 08/02/20 19:55 Lymph % (Auto) 21.1 % 08/02/20 19:55 [place] % (Auto) 7.7 % 08/02/20 19:55 Eos % (Auto) 1.6 % 08/02/20 19:55 Baso % (Auto) 0.5 % 08/02/20 19:55 Neut # (Auto) 7.33 K/uL (1.4-6.5) H 08/02/20 19:55 Lymph # (Auto) 2.24 K/uL (1.2-3.4) 08/02/20 19:55 [place] # (Auto) 0.82 K/uL (0.11-0.59) H 08/02/20 19:55 Eos # (Auto) 0.17 K/uL (0-0.5) 08/02/20 19:55 Baso # (Auto) 0.05 K/uL (0-0.2) 08/02/20 19:55 Immature Gran # (Auto) 0.02 K/uL (0.00-0.02) 08/02/20 19:55 PT 9.9 Seconds (9.0-12.0) 08/02/20 19:55 INR 1.0 (0.9-1.1) 08/02/20 19:55 APTT 23.6 Seconds (21.0-31.0) 08/02/20 19:55 PTT Ratio 0.9 08/02/20 19:55 Sodium 139 mmol/L (136-145) 08/02/20 19:55 Potassium 3.8 mmol/L (3.5-5.1) 08/02/20 19:55 Chloride 108 mmol/L (98-107) H 08/02/20 19:55 Carbon Dioxide 26 mmol/L (21-32) 08/02/20 19:55 Anion Gap 6.0 (3-11) 08/02/20 19:55 BUN 14 mg/dl (7-18) 08/02/20 19:55 Creatinine 0.86 mg/dl (0.6-1.2) 08/02/20 19:55 Est Cr Clr Drug Dosing 56.7 ml/min 08/02/20 19:55 Est GFR ( Amer) 78.8 08/02/20 19:55 Est GFR (Non-Af Amer) 68.0 08/02/20 19:55 BUN/Creatinine Ratio 16.4 (10-20) 08/02/20 19:55 Glucose 182 mg/dl (70-99) H 08/02/20 19:55 Calcium 8.7 mg/dl (8.5-10.1) 08/02/20 19:55 Total Bilirubin 0.2 mg/dl (0.2-1) 08/02/20 19:55 AST 24 U/L (15-37) 08/02/20 19:55 ALT 34 U/L (12-78) 08/02/20 19:55 Alkaline Phosphatase 95 U/L (45-117) 08/02/20 19:55 Troponin I < 0.015 ng/ml (0-0.045) 08/02/20 19:55 Total Protein 7.2 gm/dl (6.4-8.2) 08/02/20 19:55 Albumin 3.5 gm/dl (3.4-5.0) 08/02/20 19:55 Globulin 3.7 gm/dl (2.5-4.0) 08/02/20 19:55 Albumin/Globulin Ratio 1.0 (0.9-2) 08/02/20 19:55 Lipase 125 U/L (73-393) 08/02/20 19:55 Specimen Hemolysis 08/02/20 19:55 COVID-19 Eval Order CovFluRsv at [facility] 08/02/20 20:20 SARS-CoV-2 (PCR) NEGATIVE (Negative) 08/02/20 20:20 Influenza Type A (PCR) Negative (Neg) 08/02/20 20:20 Influenza Type B (PCR) Negative (Neg) 08/02/20 20:20 RSV (RT-PCR) Negative (Neg) 08/02/20 20:20 Diagnostic Findings Chest x-ray as per my interpretation borderline cardiomegaly CT abdomen pelvis initial read: No acute findings within the abdomen or pelvis. Status post cholecystectomy. No bowel obstruction. No appendicitis. Colonic diverticulosis. Mild multilevel degenerative changes of the spine. EKG as per my interpretation : Rate 70, paced rhythm Code Status & VTE Plan VTE Prophylaxis Plan VTE Prophylaxis will be ordered: Yes
[2020-08-02 23:47] LABS: Magnesium 2.2 mg/dl (1.8-2.4); Thyroid Stimulating Hormone 0.961 uIu/ml (0.300-4.500); Troponin I < 0.015 ng/ml (0-0.045)
[2020-08-03] MEDS ORDERED: traMADol HCL 50 MG TABLET PO PRN (01:32)
[2020-08-03] MEDS ORDERED: ACETAMINOPHEN 325 MG TAB PO PRN (01:32)
[2020-08-03] MEDS ORDERED: MoRPHine SULFATE 4 MG/ML 1 ML CARP\\VIAL IV PRN (01:32)
[2020-08-03] MEDS ORDERED: GLUCOSE 40% GEL 15 GM TUBE PO PRN (01:32)
[2020-08-03] MEDS ORDERED: GLUCOSE 10 TABS/TUBE PO PRN (01:32)
[2020-08-03] MEDS ORDERED: CARBOHYDRATES FOR HYPOGLYCEMIA PO PRN (01:32)
[2020-08-03] MEDS ORDERED: PROMETHAZINE HCL 12.5 MG in SODIUM CHLORIDE 0.9% 50 ML IV PRN (01:32)
[2020-08-03] MEDS ORDERED: NITROGLYCERIN SL 0.4 MG/TAB TAB SL PRN (01:32)
[2020-08-03] MEDS ORDERED: GLUCAGON FOR INJ 1 MG VIAL SQ PRN (01:32)
[2020-08-03] MEDS ORDERED: DEXTROSE 50% 50 ML SYRINGE IV PRN (01:32)
[2020-08-03] MEDS ORDERED: LORazepam 0.5 MG/1 ML VIAL IV PRN (01:32)
[2020-08-03 01:53] LABS: Appearance Urine Clear (Clear); Bacteria Urine Automated Negative (Negative); Bilirubin Urine Negative (Negative); Blood Urine Negative (Negative); Cast Urine Automated 0 /lpf (0-5); Color Urine Yellow; Glucose Urine UA Negative (Negative); Ketones Urine Negative (Negative); Leukocyte Esterase Urine Trace (Negative); Nitrite Urine Negative (Negative); Protein Urine Negative (Negative); RBC Urine Automated 0-4 /hpf (0-4); Specific Gravity Urine 1.012 (1.000-1.030); Urobilinogen Urine Negative (Negative); pH Urine 6.5 (4.5-7.5)
[2020-08-03] MEDS: INSULIN ASPART 100 UNITS/ML 3 ML PEN SC SCH ×5 (01:57→22:40)
[2020-08-03] MEDS ORDERED: INSULIN GLARGINE SOLOSTAR 100 UNITS/ML 3 ML PEN SC ONE (02:00)
[2020-08-03] MEDS ORDERED: NSS + 20MEQ KCL 20 MEQ/1,000 ML BAG IV ONE (02:00)
[2020-08-03] MEDS ORDERED: lisinopril 10 MG TAB PO STA (02:09)
[2020-08-03] MEDS: LEVOTHYROXINE SODIUM 137 MCG TABLET PO SCH (05:03)
[2020-08-03 06:53] LABS: Basophils # (auto) 0.02 K/uL (0-0.2); Basophils % (auto) 0.3 %; Eosinophils # (auto) 0.09 K/uL (0-0.5); Eosinophils % (auto) 1.1 %; Hematocrit (blood only) 39.5 % (37-47); Hemoglobin 13.1 g/dL (12.0-16.0); Immature Granulocytes # (auto) 0.01 K/uL (0.00-0.02); Immature Granulocytes % (auto) 0.1 %; Lymphocytes # (auto) 2.15 K/uL (1.2-3.4); Mean Corpuscular Hemoglobin 29.6 pg (25-34); Mean Corpuscular Hgb Conc 33.2 g/dL (32-36); Mean Corpuscular Volume 89.2 fL (80-100); Mean Platelet Volume 8.3 fL (7.4-10.4); Monocytes # (auto) 0.54 K/uL (0.11-0.59); Monocytes % (auto) 6.8 %; Neutrophils # (auto) 5.14 K/uL (1.4-6.5); Neutrophils % (auto) 64.7 %; Platelet Count 248 K/uL (130-400); RDW Coefficient of Variation 14.8 % (11.5-14.5); Red Blood Count 4.43 M/uL (4.2-5.4); White Blood Count 7.95 K/uL (4.8-10.8)
[2020-08-03 06:59] LABS: Partial Thromboplastin Ratio 0.9; Partial Thromboplastin Time 24.5 Seconds (21.0-31.0)
[2020-08-03 07:14] LABS: BUN Creatinine Ratio 19.2 (10-20); Blood Urea Nitrogen 11 mg/dl (7-18); Calcium 8.4 mg/dl (8.5-10.1); Carbon Dioxide 29 mmol/L (21-32); Chloride 112 mmol/L (98-107); Creatinine Clr Calc Pharmacy 83.9 ml/min; Est GFR (African American) 107.5; Est GFR (Non-African American) 92.7; Glucose 113 mg/dl (70-99); Potassium 3.7 mmol/L (3.5-5.1); Sodium 144 mmol/L (136-145)
[2020-08-03 07:19] LABS: Chol HDL Ratio 3; Cholesterol 165 mg/dl (0-200); HDL Cholesterol 48 mg/dl; LDL Cholesterol Calculated 101 mg/dl; Triglycerides 80 mg/dl (0-150); Troponin I < 0.015 ng/ml (0-0.045); VLDL Cholesterol 16 mg/dl
[2020-08-03] MEDS: FOLIC ACID 1 MG TAB PO SCH (07:26)
[2020-08-03] MEDS: FERROUS SULFATE 325 MG TAB PO SCH (07:27)
[2020-08-03] MEDS: PANTOprazole 40 MG TAB PO SCH (07:28)
[2020-08-03] MEDS: CEROVITE ADV FORMULA TAB PO SCH ×2 (07:28→22:08)
[2020-08-03] MEDS: ASPIRIN 81 MG ECTAB PO SCH (07:29)
[2020-08-03] MEDS: ENOXAPARIN INJ 40 MG/0.4 ML SYR SQ SCH (07:32)
[2020-08-03] MEDS: INSULIN GLARGINE SOLOSTAR 100 UNITS/ML 3 ML PEN SC SCH ×2 (07:46→22:40)
[2020-08-03] MEDS ORDERED: predniSONE 1 MG TAB PO SCH (09:00)
--- NOTE | 2020-08-03 09:15 | CT Scan Report ---
ABDOMEN AND PELVIS CT WITHOUT CONTRAST CT DOSE: 598.60 mGy.cm HISTORY: back pain TECHNIQUE: Multiaxial CT images of the abdomen and pelvis were performed without contrast. A dose lo wering technique was utilized adhering to the principles of ALARA. COMPARISON STUDY: None. FINDINGS: Pacemaker wires are noted. The lung bases are clear. No pneumoperitoneum. No pneumatosis. N o acute fractures within the visualized osseous structures. There is a 1.7 cm duodenal diverticulum. Suboptimal evaluation for bowel pathology due to the lack of intravenous and oral contrast. However, there is no definite bowel wall thickening or obstruction. Cholecystectomy. The unenhanced liver, spl een, pancreas, and adrenal glands are unremarkable. No renal or ureteral stones. No hydronephrosis. N ormal caliber abdominal aorta. No retroperitoneal lymphadenopathy. The bladder, uterus, bilateral adn exa are within normal limits. Normal appendix. Colonic diverticulosis. No evidence for acute divertic ulitis. IMPRESSION: 1. No bowel wall thickening or obstruction. 2. No renal or ureteral stones. No hydronephrosis. 3. Normal appendix. 4. Colonic diverticulosis. ACT 112: Negative or not required by law. Electronically signed by: Rigoberto Oh M.D. 08/03/2020 9:13 AM
--- NOTE | 2020-08-03 09:27 | Cardiology Consultation ---
Date of Consultation August 03, 2020 Assessment & Plan (1) Chest pain: Nondiagnostic ECG secondary to ventricular pacing. Cardiac enzymes undetectable x3 sets. Resting 2D transthoracic echocardiogram ordered to exclude regional wall motion abnormality. Patient scheduled for cardiac cathete rization Tuesday, however, due to hospitalization, recommend proceeding with coronary angiography in a.m. She will be n.p.o. except medications after midnight. Risk, benefits, alternatives to procedure discussed at length. Patient agreeable. (2) CAD (coronary artery disease), [place] coronary artery: Cardiac catheterization images reviewed from study 02/2019. There is a intermediate, 50% mid LAD stenosis. Repeat angiography recommended. Patient agreeable. (3) Hypertension: Uncontrolled blood pressure since admission. Recommend addition of low- dose carvedilol 3.125 mg twice daily. Consider addition of topical nitrates ending clinical response. Continue lisinopril as previously ordered. (4) Heart block: Status post biventricular pacemaker. Normal function with adequate battery life per most recent interrogation. No evidence of dysrhythmias per review of telemetry. History of Present Illness Reason for Consultation: Chest pain Requesting Physician: Dr. Goss Attending Physician: Bipin Morales MD History of Present Illness 70-year-old female with history of nonobstructive coronary disease, complete heart block status post biventricular pacemaker, and chronic diastolic heart failure who was scheduled for a diagnostic coronary angiography on Tuesday. She presented to the ER with chest discomfort and exertional shortness of breath. Reports occasional bilateral upper extremity radiation of chest pain. Blood pressure markedly elevated on presentation. Treated with chronic prednisone for history of PMR. Her only antihypertensive medication is lisinopril. Currently resting comfortably. Notes occasional episodes of chest tightness lasting less than 30 seconds. Denies exertional chest discomfort. Notes dyspnea on exertion primarily when walking on incline. There are occasional episodes of dyspnea associated with chest tightness. The symptoms have been present for nearly 6 months. Functional opacity stable. Exercising, walking daily without restriction. Reports chronic low back pain which is unchanged. No orthopnea, PND, palpitations, lightheadedness, dizziness, syncope, or near syncope. Allergies Allergy/AdvReac Type Severity Reaction Status Date / Time levofloxacin Allergy Mild dizzy Verified 08/02/20 20:05 Penicillins Allergy Unknown UNKNOWN Verified 08/02/20 20:05 erythromycin base AdvReac Intermediate BRUISES ON Verified 08/02/20 20:05 LEGS Home Medications Medication Instructions Recorded Confirmed Type PreserVision AREDS-2 1 tab PO BID 08/07/18 08/02/20 History omeprazole 20 mg PO QAM 08/07/18 08/02/20 History nitroglycerin 0.4 mg SUBLINGUAL UNKNOWN PRN 03/19/19 08/02/20 History albuterol sulfate 2 puff INHALATION Q6 PRN 08/02/20 08/02/20 History aspirin 81 mg PO DAILY 08/02/20 08/02/20 History cholecalciferol (vitamin D3) 25 mcg PO DAILY 08/02/20 08/02/20 History [Vitamin D3] coenzyme Q10 [CoQ-10] 200 mg PO DAILY 08/02/20 08/02/20 History ferrous sulfate 325 mg PO DAILY 08/02/20 08/02/20 History folic acid 1 mg PO DAILY 08/02/20 08/02/20 History insulin degludec [Tresiba 24 unit SUBCUT DAILY 08/02/20 08/02/20 History FlexTouch U-100] levothyroxine 137 mcg PO DAILYBB 08/02/20 08/02/20 History lisinopril 10 mg PO DAILY 08/02/20 08/02/20 History metformin 1,000 mg PO BID 08/02/20 08/02/20 History methotrexate sodium [Methotrexate 15 mg PO WK 08/02/20 08/02/20 History (Anti-Rheumatic)] prednisone 0 mg PO DAILY 08/02/20 08/02/20 History repaglinide 0.5 mg PO DIRECTED 08/02/20 08/02/20 History Patient History Medical History (Updated 08/03/20 @ 11:14 by Jeff Lopez DO) Branch retinal artery occlusion of right eye Diabetes mellitus, type 2 GERD (gastroesophageal reflux disease) Hyperlipidemia Hypertension Hypothyroidism Surgical History History of bilateral cataract extraction History of cholecystectomy History of colonoscopy History of esophagogastroduodenoscopy (EGD) History of strabismus surgery left eye History of tonsillectomy and adenoidectomy History of tooth extraction upper and lower dentures History of wisdom tooth extraction Hx of left breast biopsy x2--benign Family History Mother Family history of stomach cancer Other No family history of adverse response to anesthesia Social History Smoking Status: Former smoker Second Hand Exposure: Yes (parents smoked); Hx Alcohol Use: Yes Alcohol type: wine Hx Substance Use: No Preferred Language: Greek Communication Ability: Effective 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 Beliefs That Will Affect Care: None Current Living Situation: Spouse Current Living Situation Comment: Lives with and daughter Other Information That Helps Us Care for You: No Feels Safe at Home: Yes Safety Concerns: Feels Safe At This Time Assistive Devices: None Review of Systems Review of Systems: All systems reviewed & are unremarkable except as noted in Subjective Physical Exam Constitutional: well developed, well nourished and + obese Respiratory: normal respiratory effort; no respiratory distress and no labored breathing Auscultation: lungs clear to auscultation bilaterally; no crackles, no rales, no rhonchi and no wheezes Cardiovascular: Rate/Rhythm: regular rate and regular rhythm Heart Sounds: normal S1 and normal S2; no murmur Vessels: no JVD Extremities: no edema Gastrointestinal (Abdomen): Inspection/Auscultation: abdomen normal to inspection and normal bowel sounds; abdomen not distended Percussion/Palpation: abdomen soft; abdomen nontender, no guarding and abdomen not rigid Skin: no rashes, warm and dry Neurologic: CN's II-XI intact bilaterally and moves all extremities Motor/Sensory: no tremor Psychiatric: A+Ox3, euthymic affect Results & Data ([facility]) Vital Signs (Past 12 Hours) Vital Signs Temp Pulse Pulse Resp BP BP Pulse Ox 08/03/20 08:07 36.7 C 58 L 18 194/72 H 97 08/03/20 03:38 36.6 C 65 18 174/62 H 96 08/03/20 02:26 162/73 H 08/03/20 01:30 36.4 C L 60 16 180/65 H 99 08/03/20 00:30 60 16 159/77 H 97 08/03/20 00:22 60 12 172/78 H 98 08/02/20 23:00 62 18 174/72 H 96 08/02/20 22:30 60 20 151/78 H 97 08/02/20 22:00 60 23 141/66 H 96 Pulse Ox 08/03/20 08:07 08/03/20 03:38 08/03/20 02:26 08/03/20 01:30 99 08/03/20 00:30 08/03/20 00:22 08/02/20 23:00 08/02/20 22:30 08/02/20 22:00 (1) Chest pain Chest pain type: precordial pain Qualified Code(s): R07.2 - Precordial pain (2) Hypertension Hypertension type: essential hypertension Qualified Code(s): I10 - Essential (primary) hypertension
--- NOTE | 2020-08-03 10:01 | Ultrasound Report ---
BILATERAL LOWER EXTREMITY VENOUS DOPPLER CLINICAL HISTORY: leg cramps COMPARISON STUDY: No previous studies for comparison. TECHNIQUE: Sonography of the deep venous system of the bilateral lower extremities was performed. Co mpression and augmentation were evaluated. FINDINGS: The bilateral common femoral, superficial femoral and popliteal veins were compressible. A ugmentation was normal. Flow was shown within the deep calf vessels. IMPRESSION: No evidence of deep venous thrombus within the bilateral lower extremities. ACT 112: Negative or not required by law. Electronically signed by: Allan Barrow M.D. 08/03/2020 9:59 AM
--- NOTE | 2020-08-03 10:01 | Ultrasound Report ---
US ankle/brachial index comp CLINICAL HISTORY: leg cramps COMPARISON STUDY: None. FINDINGS: Bilateral ankle brachial indices measure between 1.1 and 1.2. IMPRESSION: Normal bilateral ankle brachial indices. ACT 112: Negative or not required by law. Electronically signed by: Rigoberto Oh M.D. 08/03/2020 10:00 AM
--- NOTE | 2020-08-03 10:11 | XRay Report ---
XR chest 1V portable HISTORY: Atypical Chest Pain COMPARISON: Chest 03/21/2019. FINDINGS: The heart is top normal in size. This remains unchanged. The left-sided pacemaker. The lung s are clear. No pleural effusions. No pneumothorax. IMPRESSION: No significant change compared to the prior study. No acute process. ACT 112: Negative or not required by law. Electronically signed by: Rigoberto Oh M.D. 08/03/2020 10:10 AM
[2020-08-03] MEDS ORDERED: carvediloL 3.125 MG TAB PO ONE (11:09)
--- NOTE | 2020-08-03 17:53 | Hospitalist Progress Note ---
Date of Service August 03, 2020 Assessment & Plan (1) Chest pain: Chest pain H/O CAD Rule out ACS Cardiac enzymes negative ECHO: EF 55 to 60%. Grade 1 diastolic dysfunction. Aortic valve is trileaflet. Mild to moderate aortic regurgitation. Mild MR. Mild TR. No pulmonary hypertension. The left ventricular wall motion is normal Appreciate cardiology input Plan for cardiac catheterization tomorrow Continue aspirin, carvedilol Uncontrolled hypertension Steroids could be contributing Continue carvedilol, lisinopril Chronic diastolic heart failure Patient euvolemic Monitor volume status Complete heart block H/LBBB S/P biventricular pacemaker IRAJ on CPAP DM II HbA1C: 6.28 June 2020 Continue insulin therapy Polymyalgia rheumatica Continue chronic steroid Hypothyroidism Continue levothyroxine DVT Px: Lovenox SQ Code Status Full code Admission and Anticipated Discharge Date Admission Date: August 02, 2020 Subjective Patient is seen and examined at bedside States having transient retrosternal chest pain this morning which resolved spontaneously Reports minimal dyspnea associated with pain Currently asymptomatic Plan for cardiac catheterization tomorrow Offers no other complaints Review of Systems Review of Systems: All systems reviewed & are unremarkable except as noted in HPI & below Physical Exam Physical Exam: Physical Exam: Vitals signs as noted above General Appearance:obese, no apparent distress Head: normocephalic, Atraumatic Eyes: normal inspection, EOMI Neck: supple, Trachea midline Respiratory/Chest: Normal breath sounds, CTA, No accessory muscle use Cardiovascular: S1, S2, No murmur Abdomen/GI:Soft, Non tender, Bowel sounds present Extremities/Musculoskeletal:normal inspection, no edema Neurologic/Psych:AAOX3, grossly no focal neurological deficits Skin: normal color, warm Results & Data Results & Data ([facility]) Vital Signs (Past 12 Hours) Vital Signs Temp Pulse Pulse Resp BP BP Pulse Ox 08/03/20 16:00 36.7 C 59 L 17 159/75 H 171/61 H 98 08/03/20 12:06 36.8 C 68 18 155/77 H 96 08/03/20 08:07 36.7 C 58 L 18 194/72 H 97 08/03/20 08:00 60 Laboratory Results Short CBC 08/02/20 08/03/20 Range/Units 19:55 06:29 WBC 10.63 7.95 (4.8-10.8) K/uL Hgb 14.2 13.1 (12.0-16.0) g/dL Hct 42.1 39.5 (37-47) % Plt Count 261 248 (130-400) K/uL BMP 08/02/20 08/03/20 19:55 06:29 Sodium 139 144 Potassium 3.8 3.7 Chloride 108 H 112 H Carbon Dioxide 26 29 BUN 14 11 Creatinine 0.86 0.58 L Glucose 182 H 113 H Calcium 8.7 8.4 L Cardiac Enzymes 08/02/20 08/02/20 08/03/20 Range/Units 19:55 23:01 06:29 Troponin I < 0.015 < 0.015 < 0.015 (0-0.045) ng/ml Liver Function 08/02/20 Range/Units 19:55 Total Bilirubin 0.2 (0.2-1) mg/dl AST 24 (15-37) U/L ALT 34 (12-78) U/L Alkaline Phosphatase 95 (45-117) U/L Albumin 3.5 (3.4-5.0) gm/dl Urine 08/03/20 Range/Units 01:40 Urine Color Yellow Urine Appearance Clear (Clear) Urine pH 6.5 (4.5-7.5) Ur Specific [place] 1.012 (1.000-1.030) Urine Protein Negative (Negative) Urine Glucose (UA) Negative (Negative) (1) Chest pain Chest pain type: precordial pain Qualified Code(s): R07.2 - Precordial pain
[2020-08-03] MEDS ORDERED: lisinopril 20 MG TAB PO SCH (21:00)
[2020-08-03] MEDS ORDERED: lisinopril 10 MG TAB PO SCH (21:00)
[2020-08-03] MEDS: carvediloL 3.125 MG TAB PO SCH (22:08)
[2020-08-04] MEDS: LEVOTHYROXINE SODIUM 137 MCG TABLET PO SCH (04:37)
--- NOTE | 2020-08-04 06:34 | Electrocardiogram Report ---
Test Reason : Blood Pressure : / mmHG Vent. Rate : 064 BPM Atrial Rate : 064 BPM P-R Int : 176 ms QRS Dur : 142 ms QT Int : 466 ms P-R-T Axes : 071 137 076 degrees QTc Int : 480 ms AV dual-paced rhythm Abnormal ECG When compared with ECG of 02-AUG-2020 19:25, Premature ventricular complexes are no longer Present Vent. rate has decreased BY 7 BPM Confirmed by Danial Taylor ([id number]) on 08/05/2020 5:16:22 AM Referred By: REFERRED SELF Confirmed By:Danial Taylor
[2020-08-04 06:42] LABS: Hematocrit (blood only) 39.1 % (37-47); Hemoglobin 12.8 g/dL (12.0-16.0); Mean Corpuscular Hemoglobin 29.3 pg (25-34); Mean Corpuscular Hgb Conc 32.7 g/dL (32-36); Mean Corpuscular Volume 89.5 fL (80-100); Mean Platelet Volume 8.3 fL (7.4-10.4); Platelet Count 224 K/uL (130-400); RDW Coefficient of Variation 14.8 % (11.5-14.5); RDW Standard Deviation 48.2 fL (36.4-46.3); Red Blood Count 4.37 M/uL (4.2-5.4); White Blood Count 8.26 K/uL (4.8-10.8)
[2020-08-04 07:21] LABS: BUN Creatinine Ratio 29.9 (10-20); Calcium 8.3 mg/dl (8.5-10.1); Creatinine Clr Calc Pharmacy 80.6 ml/min; Est GFR (African American) 106.3; Est GFR (Non-African American) 91.7; Magnesium 2.3 mg/dl (1.8-2.4); Potassium 3.8 mmol/L (3.5-5.1)
[2020-08-04] MEDS: INSULIN ASPART 100 UNITS/ML 3 ML PEN SC SCH ×2 (08:09→11:48)
--- NOTE | 2020-08-04 08:46 | Cardiology Progress Note ---
Date of Service August 04, 2020 Assessment & Plan (1) Chest pain: Nondiagnostic ECG secondary to ventricular pacing. Cardiac enzymes undetectable x3 sets. Resting 2D transthoracic echocardiogram without regional wall motion abnormality. Risk versus benefit of cardiac catheterization discus sed. Patient agreeable to proceed. (2) CAD (coronary artery disease), rincon coronary artery: Cardiac catheterization images reviewed from study 02/2019. There is a intermediate, 50% mid LAD stenosis. Repeat angiography recommended. Patient agreeable. (3) Hypertension: Blood pressure improved with addition of carvedilol. (4) Heart block: Status post biventricular pacemaker. Normal function with adequate battery life per most recent interrogation. No evidence of dysrhythmias per review of telemetry. Admission and Anticipated Discharge Date Admission Date: August 03, 2020 Subjective Patient seen and examined at the bedside in the cardiac catheterization holding area. Slept well overnight. No recurrent chest discomfort. Denies any dyspnea at rest. No palpitations, lightheadedness, or dizziness. Review of Systems Review of Systems: All systems reviewed & are unremarkable except as noted in Subjective Physical Exam Constitutional: well developed, well nourished and + obese Respiratory: normal respiratory effort; no respiratory distress and no labored breathing Auscultation: lungs clear to auscultation bilaterally; no crackles, no rales, no rhonchi and no wheezes Cardiovascular: Rate/Rhythm: regular rate and regular rhythm Heart Sounds: normal S1 and normal S2; no murmur Vessels: no JVD Extremities: no edema Gastrointestinal (Abdomen): Inspection/Auscultation: abdomen normal to inspection and normal bowel sounds; abdomen not distended Percussion/Palpation: abdomen soft; abdomen nontender, no guarding and abdomen not rigid Skin: no rashes, warm and dry Neurologic: CN's II-XI intact bilaterally and moves all extremities Motor/Sensory: no tremor Psychiatric: A+Ox3, euthymic affect Results & Data ([facility]) Vital Signs (Past 12 Hours) Vital Signs Temp Pulse Resp BP BP Pulse Ox 08/04/20 08:18 70 16 141/75 H 97 08/04/20 08:11 36.9 C 62 18 162/72 H 97 08/04/20 04:41 36.5 C 62 18 166/78 H 98 08/04/20 00:07 36.6 C 60 18 137/64 98 (1) Chest pain Chest pain type: precordial pain Qualified Code(s): R07.2 - Precordial pain (2) Hypertension Hypertension type: essential hypertension Qualified Code(s): I10 - Essential (primary) hypertension
--- NOTE | 2020-08-04 08:46 | Pre Anesthesia Assessment ---
Date of Service August 04, 2020 Pre Sedation Assessment Vital Signs Temp Pulse Pulse Resp BP BP Pulse Ox 08/04/20 08:18 70 16 141/75 H 97 08/04/20 08:11 36.9 C 62 18 162/72 H 97 08/04/20 04:41 36.5 C 62 18 166/78 H 98 08/04/20 00:07 36.6 C 60 18 137/64 98 08/03/20 19:55 36.8 C 60 22 175/75 H 97 08/03/20 16:30 63 08/03/20 16:00 36.7 C 59 L 17 159/75 H 171/61 H 98 08/03/20 12:06 36.8 C 68 18 155/77 H 96 Cardiovascular RRR, no murmur, no edema Respiratory normal respiratory effort, lungs clear to auscultation Pre-Sedation Airway Assessment Smoking Status: Former smoker Hx Sleep Apnea: No Short, Thick Neck: No Thyromental Distance: > or= 3.5 Finger Breadths Mallampati Class: II ASA: ASA3 NPO Status Date of Last Intake of Fluids: 08/03/20 Time of Last Intake of Fluids: 22:00 Date of Last Intake of Solid Food: 08/03/20 Time of Last Intake of Solid Foods: 22:00 Procedure Planning Contraindications for Sedation: none Current Medications Reviewed: Yes Notes The planned sedation has been discussed with the patient. Informed Consent was obtained. I have identified the patient, determined the appropriateness of sedation and have assessed the patient immediately prior to the procedure. All medicine(s) and interventions are by my order.
[2020-08-04] MEDS ORDERED: predniSONE 1 MG TAB PO SCH (09:00)
[2020-08-04] MEDS ORDERED: niCARdipine HCL INJ 2.5 MG/ML 10 ML AMP ONE (09:01)
[2020-08-04] MEDS ORDERED: MIDAZOLAM HCL 1 MG/ML 2ML VIAL ONE ×2 (09:01→09:43)
[2020-08-04] MEDS ORDERED: HEPARIN (PORCINE) 1000 UNIT/ML 10 ML (CATH LAB USE ONLY) ONE (09:01)
[2020-08-04] MEDS ORDERED: NITROGLYCERIN/D5W 100MCG/ML 20ML SYR ONE (09:02)
[2020-08-04] MEDS ORDERED: fentaNYL citrate 100 MCG/2 ML VIAL ONE (09:02)
[2020-08-04] MEDS ORDERED: ADENOSINE IV SOLN 3 MG/ML 20 ML VIAL IV ONE (09:43)
--- NOTE | 2020-08-04 09:51 | Post Anesthesia Assessment ---
Date of Service August 04, 2020 Post Sedation Assessment Vital Signs Temp Pulse Pulse Resp BP BP Pulse Ox 08/04/20 08:18 70 16 141/75 H 97 08/04/20 08:11 36.9 C 62 18 162/72 H 97 08/04/20 04:41 36.5 C 62 18 166/78 H 98 08/04/20 00:07 36.6 C 60 18 137/64 98 08/03/20 19:55 36.8 C 60 22 175/75 H 97 08/03/20 16:30 63 08/03/20 16:00 36.7 C 59 L 17 159/75 H 171/61 H 98 08/03/20 12:06 36.8 C 68 18 155/77 H 96 Recovery Score Activity: Moves 4 extremities Respiration: Deep Breath/Cough Circulation: +/-20-49% PreAnes Value Consciousness: Fully Awake Oxygen Saturation: > 92% On Room Air Discharge Sedation Level of Care: Phase I Post Sedation Plan On clinical assessment, the patient appears to have tolerated the sedation without complications. Patient is recovering as anticipated. Patient will continue to be monitored by nursing and may be discharged when sedation discharge criteria are met per below protocol. Upon Completions of procedure up to 15 minutes continue every 5 minute vital signs and the P.A.R. score; then discharge to a Phase I or Fast Track to Phase II per the following guidelines: * Discharge Patient to appropriate Phase II area if PAR is 8 or greater or return to pre- procedure baseline. The post - procedure orders will be as directed. * If PAR score is less than 8 or not return to pre-procedure baseline then zahida ent will follow Phase I monitoring till PAR is reached for Phase II. The Phase I may be done in procedure room or may call to secure a Phase I area. * If naloxone or flumazenil are used for reversal, hold in Phase I for continued monitoring from when last reversal dose was given for a minimum of 60 minutes or longer pending the nurse and/or physician discretion of patient condition before discharge to Phase II. Please call the Sedation Physician to re-evaluate and complete post-note for discharge to Phase II area. Do NOT discharge from procedure sedation or Phase 1 until post- sedation e valuation note is complete by procedure /sedation MD Sedation Discharge Instructions to be given to the patient at discharge to home.
--- NOTE | 2020-08-04 09:55 | Cardiac Catheterization ---
Cardiac Cath Procedure Full Procedure Date August 04, 2020 Pre-Procedure Diagnosis Pre-Procedure Diagnosis: Angina and CAD AUC Score AUC Score: 8 Post-Procedure Diagnosis Post-Procedure Diagnosis: Moderate CAD Procedure(s) Performed Procedure(s) Performed: Coronary Angiography and Left Heart Cath [employer] Officer Jeff Lopez DO Design Director(s) Gilles RTR Estimated Blood Loss Estimated Blood Loss: None Summary of Findings 50% mid lAD Hemodynamics Rest Ao:: 120/60/84 Final Ao: 147/53/87 LV: 137/1/8 Recommendations Recommendations: Management Recommendatons (FFR LAD) Specimens Specimens: None Radiation Exposure (mGy) 819 Contrast (mls) 30 Drains Drains: N/A Anesthesia Moderate sedation. Start 15. End 945. Disposition shop laborer for FFR I attest to the content of the Intraoperative Record and any orders documented therein. Any exceptions are noted below. ACC Data: Citizenship Teacher Cardiac Status Clinical evaluation leading to the procedure CAD Presenation: Stable angina Anginal Classification: CCS II Heart Failure: No Imaging Studies Past 6 Months: Yes Stress Studies Past 6 Months: No STEMI OR Non-STEMI Thrombolytics: No Coronary Anatomy Dominant: Co-Dominant Left Main (% Stenosis): Normal LAD (% Stenosis): Mid (50%) D1 (% Stenosis): Normal D2 (% Stenosis): Normal L PL1 (% Stenosis): Distal (10% luminal irregularities) L PL2 (% Stenosis): Distal (10% luminal irregularities) L PDA (% Stenosis): Distal (small vessel with 10-20 luminal irregularities) RCA (% Stenosis): Normal R PDA (% Stenosis): Normal R PL1 (% Stenosis): Normal Ramus (% Stenosis): Distal (10-20% luminal irregularities) Diagnostic Physicians Name: Jeff Lopez DO Status: Urgent Closure Device Percutaneous Entry Location: Radial Closure Device: Radial Band Recommendations: Management Recommendatons (FFR LAD) Intraprocedure Events Significant Disection: No Perforation: No
--- NOTE | 2020-08-04 09:57 | Electrocardiogram Report ---
Test Reason : Blood Pressure : / mmHG Vent. Rate : 071 BPM Atrial Rate : 071 BPM P-R Int : 172 ms QRS Dur : 158 ms QT Int : 468 ms P-R-T Axes : 066 077 060 degrees QTc Int : 508 ms AV dual-paced rhythm with frequent Premature ventricular complexes Abnormal ECG When compared with ECG of 21-MAR-2019 07:06, Vent. rate has decreased BY 4 BPM Confirmed by Danial Taylor ([id number]) on 08/04/2020 6:33:35 AM Also confirmed by Danial Taylor ([id number]), digital editor Attila Pandya ([id number]) on 08/04/2020 9:57:15 AM Referred By: REFERRED SELF Confirmed By:Danial Taylor
[2020-08-04] MEDS: INSULIN GLARGINE SOLOSTAR 100 UNITS/ML 3 ML PEN SC SCH (10:31)
[2020-08-04] MEDS: PANTOprazole 40 MG TAB PO SCH (11:30)
[2020-08-04] MEDS: FOLIC ACID 1 MG TAB PO SCH (11:30)
[2020-08-04] MEDS: ASPIRIN 81 MG ECTAB PO SCH (11:30)
[2020-08-04] MEDS: FERROUS SULFATE 325 MG TAB PO SCH (11:30)
[2020-08-04] MEDS: CEROVITE ADV FORMULA TAB PO SCH (11:31)
[2020-08-04] MEDS: ENOXAPARIN INJ 40 MG/0.4 ML SYR SQ SCH (11:54)
[2020-08-04] MEDS: carvediloL 3.125 MG TAB PO SCH (11:59)
--- NOTE | 2020-08-04 13:40 | Cardiac Catheterization ---
[facility] Data: Dock Associate Cardiac Status Clinical evaluation leading to the procedure CAD Presenation: Unstable angina Anginal Classification: CCS III Heart Failure: No Cardiogenic Shock within 24 Hours: No Cardiac Arrest within 24 Hours: No Imaging Studies Past 6 Months: Yes Stress Studies Past 6 Months: No Diagnostic Physicians Name: Andi Ram MD Status: Elective Closure Device Percutaneous Entry Location: Radial Closure Device: Radial Band Recommendations: Medical Therapy and/or Counseling Intraprocedure Events Significant Disection: No Perforation: No Cardiac Cath Procedure Full Procedure Date August 04, 2020 Pre-Procedure Diagnosis Pre-Procedure Diagnosis: Angina and CAD AUC Score AUC Score: 7 Post-Procedure Diagnosis Post-Procedure Diagnosis: Moderate CAD Procedure(s) Performed Procedure(s) Performed: Coronary Angiography and Fractional Flow [place] [employer] Shop Welder Andi Ram MD Extension Specialist(s) Katedismirian RTR Estimated Blood Loss Estimated Blood Loss: None Medication(s) Medication(s): Fentanyl, Heparin, Lidocaine 1%, Nicardipine, Nitroglycerin and Versed Summary of Findings For full details of patient's coronary angiography please see cath report dictat ed by Dr. Lopez. Briefly, patient found to have a intermediate mid LAD stenosis. Decision to proceed with FFR. Procedure: -Left main cannulated with EBU 3.5 guide -BMW wire placed into distal LAD -ACIST Catheter placed across stenosis -Pd/Pa 0.93 -FFR 0.85 -Coronary angiography revealed no apparent complications post wire/catheter removal Summary: 1. Nonobstructive moderate mid LAD stenosis (FFR 0.85). Recommendations: Continued ASCVD risk factor modification per Dr. Lopez. Hemodynamics Rest Ao:: 140/44/81 Final Ao: 154/57/97 LV: 137/8 Recommendations Recommendations: Medical Therapy and/or Counseling Specimens Specimens: None Radiation Exposure (mGy) 966 Contrast (mls) 20 Drains Drains: N/A Anesthesia Moderate sedation. Start 46. End 958. Procedural Complication(s) None Disposition PCU I attest to the content of the Intraoperative Record and any orders documented therein. Any exceptions are noted below. [facility] Card Cath Procedure Codes Cardiac Catheterization Procedure 1: Cardiovascular Cath Procedures: 96244 (Doppler) Pressure Wire Moderate Sedation Procedure 1: Sedation/Anesthesia: 22564 Mod Sedation by the same physician; Ea [id number] Minutes PG Care Time/CCT Total # of Minutes Spent Total Time Spent with Patient: Total time spent is greater than 50% in coordination of care (as documented) at patient's floor/unit and/or counseling patient:
--- NOTE | 2020-08-04 13:41 | Hospitalist Progress Note ---
Date of Service August 04, 2020 Assessment & Plan (1) Chest pain: Chest pain H/O CAD ACS ruled out Cardiac enzymes negative ECHO: EF 55 to 60%. Grade 1 diastolic dysfunction. Aortic valve is trileaflet. Mild to moderate aortic regurgitation. Mild MR. Mild TR. No pulmonary hypertension. The left ventricular wall motion is normal Appreciate cardiology input S/P cardiac cath: Nonobstructive to moderate mid LAD stenosis. Lipid panel within normal limits Continue aspirin, carvedilol Uncontrolled hypertension Steroids could be contributing Continue carvedilol, lisinopril Advised to reevaluate by sleep medicine for possible need for CPAP settings change as outpatient Chronic diastolic heart failure Patient euvolemic Monitor volume status Complete heart block H/LBBB S/P biventricular pacemaker IRAJ on CPAP DM II HbA1C: 6.28 June 2020 Continue insulin therapy Polymyalgia rheumatica Continue chronic steroid Hypothyroidism Continue levothyroxine DVT Px: Lovenox SQ Code Status Full code Admission and Anticipated Discharge Date Admission Date: August 03, 2020 Subjective Patient is seen and examined at bedside Had cardiac catheterization earlier today Chest pain resolved Denies shortness of breath, dizziness, nausea, abdominal pain Discussed with cardiology today Plan to be discharged home today Review of Systems Review of Systems: All systems reviewed & are unremarkable except as noted in HPI & below Physical Exam Physical Exam: Physical Exam: Vitals signs as noted above General Appearance:obese, no apparent distress Head: normocephalic, Atraumatic Eyes: normal inspection, EOMI Neck: supple, Trachea midline Respiratory/Chest: Normal breath sounds, CTA, No accessory muscle use Cardiovascular: S1, S2, No murmur Abdomen/GI:Soft, Non tender, Bowel sounds present Extremities/Musculoskeletal:normal inspection, no edema Neurologic/Psych:AAOX3, grossly no focal neurological deficits Skin: normal color, warm Results & Data Results & Data ([facility]) Vital Signs (Past 12 Hours) Vital Signs Temp Pulse Resp BP BP Pulse Ox 08/04/20 12:35 36.8 C 62 16 145/78 H 95 08/04/20 11:35 36.8 C 60 16 153/68 H 95 08/04/20 11:05 36.8 C 61 16 160/66 H 96 08/04/20 10:35 36.8 C 59 L 16 158/67 H 96 08/04/20 10:15 60 18 138/60 94 08/04/20 10:00 62 18 165/65 H 94 08/04/20 08:18 70 16 141/75 H 97 08/04/20 08:11 36.9 C 62 18 162/72 H 97 08/04/20 04:41 36.5 C 62 18 166/78 H 98 Laboratory Results Short CBC 08/04/20 Range/Units 06:25 WBC 8.26 (4.8-10.8) K/uL Hgb 12.8 (12.0-16.0) g/dL Hct 39.1 (37-47) % Plt Count 224 (130-400) K/uL BMP 08/04/20 06:25 Sodium 142 Potassium 3.8 Chloride 109 H Carbon Dioxide 28 BUN 18 D Creatinine 0.60 Glucose 137 H Calcium 8.3 L (1) Chest pain Chest pain type: precordial pain Qualified Code(s): R07.2 - Precordial pain
--- NOTE | 2020-08-04 13:59 | Discharge Summary ---
Date of Service August 04, 2020 Admission HPI Per Admitting Provider History obtained from patient and records. Medical history significant for chronic diastolic heart failure (EF 60%, TTE 2019), complete heart block status post PPM, nonocclusive CAD as per records, history LBBB, hypertension, hyperlipidemia, IRAJ on CPAP, DM2 insulin requiring, PMR on chronic steroid therapy, hypothyroidism, IgA deficiency as per records, Lyme disease as per records, past tobacco abuse. Last confinement March 2019 for complete heart block status post PPM. Few weeks history of intermittent chest discomfort occasionally going to both arms with exertional shortness of breath. No cough symptoms, no fluid retention, no headache, no unusual stress at home. Occasional leg cramps as per patient. No inordinate OTC NSAID intake. Compliant with CPAP and home meds. Denies dietary indiscretion. Does not check blood pressure at home. Patient seen at [facility] EPS specialist office few days ago. No arrhythmias on pacemaker interrogation as per documentation. Patient scheduled for outpatient diagnostic cardiac catheterization at [facility] next week to rule out ischemia as etiology for symptoms. Patient later on noted worsening symptoms along with achy low back pain without leg weakness, fever, incontinence symptoms at home. Medical History as above Surgical History : Cholecyst ectomy, tonsillectomy, cataract surgery, PPM Family History : Dementia, stomach cancer, heart disease, mood disorder Personal/Social history : Past tobacco abuse, occasional EtOH intake, retired social security specialist Admission Exam Per Admitting Provider Physical Exam Physical Exam: GENERAL: Anxious, no respiratory distress SKIN: Normal color, warm HEENT: [place] palpebral conjunctivae, no ptosis, dry buccal mucosa NECK : Supple, short neck, no tenderness CHEST : Decreased breath sounds, anterior chest wall tenderness HEART : RRR, no obvious murmurs ABDOMEN: Some distention, nontender BACK : Minimal low back tenderness EXTREMITIES : Minimal LE swelling, minimal LE tenderness, no other conspicuous deformities noted NEUROLOGIC : Coherent, no facial asymmetry, no other gross focality Principal Diagnosis Chest pain Uncontrolled hypertension Discharge Data Allergies Allergy/AdvReac Type Severity Reaction Status Date / Time levofloxacin Allergy Mild dizzy Verified 08/02/20 20:05 Penicillins Allergy Unknown UNKNOWN Verified 08/02/20 20:05 erythromycin base AdvReac Intermediate BRUISES ON Verified 08/02/20 20:05 LEGS Consultations 08/02/20 22:01 ED Decision to Admit Stat 08/03/20 01:32 Consult Cardiology Routine 08/04/20 07:00 Consult Cardiac Catheterization Routine Procedures Performed Operation Date: 08/04/20 08:30 Actual Procedures p Cath, Left with Cors and Vent - Jeff Lopez, DO s Cineradiography w/Routine Exam - Jeff Lopez, DO s Fraction Flow [place] SGL Ves - Eduin Ram MD Ordered Studies 08/02/20 23:27 CT abd pelvis wo con Urgent 08/03/20 05:09 US ankle/brachial index comp Routine US venous doppler LE BI Routine 08/04/20 06:30 CL Cath Imgs for PACS use only Routine Hospital Course (1) Chest pain: Chest pain H/O CAD ACS ruled out Cardiac enzymes negative ECHO: EF 55 to 60%. Grade 1 diastolic dysfunction. Aortic valve is trileaflet. Mild to moderate aortic regurgitation. Mild MR. Mild TR. No pulmonary hypertension. The left ventricular wall motion is normal Appreciate cardiology input S/P cardiac cath: Nonobstructive to moderate mid LAD stenosis. Lipid panel within normal limits Continue aspirin, carvedilol Uncontrolled hypertension Steroids could be contributing Continue carvedilol, lisinopril Advised to reevaluate by sleep medicine for possible need for CPAP settings change as outpatient Chronic diastolic heart failure Patient euvolemic Monitor volume status Complete heart block H/LBBB S/P biventricular pacemaker IRAJ on CPAP DM II HbA1C: 6.28 June 2020 Continue insulin therapy Polymyalgia rheumatica Continue chronic steroid Hypothyroidism Continue levothyroxine DVT Px: Lovenox SQ Code Status Full code Total Time Total Time Spent Total Time Spent (In Minutes): 38 minutes Total Time Includes: Examination of the Patient, Discharge Planning, Medication Reconciliation, Communication With Other Providers and Other Discharge Plan Discharge Items Patient Disposition: Home - Self-Care Reason For Visit: CP Discharge Diagnosis: Chest pain Uncontrolled hypertension Activity: Per Instructions section Exercise/Sports: Gradually increase as tolerated Non-emergency contact: Primary Care Provider and Veterinary Virologist Call non-emergency contact if: you have any medication questions, your symptoms worsen, your pain is not controlled, your pain is concerning for you and you h ave a fever Follow-up/Referrals: Veroncia Ferguson MD [Primary Care Provider] - 08/07/20 10:20 am Diet: Carb Consistent or DM2 and Heart Healthy Addtl Attending Provider Instructions: Follow-up with your primary care physician in 1 week as advised Follow-up with your delinquent notice machine operator as needed Discussed with your sleep medicine doctor to assess: Possible need for CPAP settings change if required. Your blood pressure being uncontrolled likely secondary to steroid use. Discussed with your creel selector if you need to be decreased on the dose of prednisone. Seek immediate medical attention if your symptoms reoccur or worsen ACTIVITY RECOMMENDATIONS: Excess manipulation of the wrist should be avoided for the next 24-48 hours. * No lifting over 2 pounds (approximately a 1/2 gallon of milk) with the utilized arm for 24 hours. * No strenuous activity such as bowling or tennis for 3 days. * Keep the site of the procedure covered with a bandage for 24 hours. *You may shower the day after the procedure. Do not take a tub bath or submerge the puncture site in water for the next 3 days. *Do not operate any motorized equipment for 3 days. SPECIAL CARE INSTRUCTIONS: The site may be slightly bruised and sore following your procedure. Should any of the following occur, contact the Dr. who performed your procedure. 1. Redness/inflammation, swelling, chills, or fever, or colored drainage at procedure site within 3-7 days after your procedure. 2. Coldness, discoloration, ongoing numbness, severe pain, or swelling. Expect mild tingling of hand and tenderness at the puncture site for up to three days. If this persists beyond three days, or other symptoms develop, notify the Dr. who performed your procedure. BLEEDING: If the procedure site on your wrist begins to bleed, do not panic 1. Place 1 or 2 fingers firmly just slightly above the insertion site to stop the bleeding. You may be able to feel your pulse as you hold pressure. 2. Lift your finger after 5 minutes to see if the bleeding has stopped. 3. Once the bleeding has stopped, gently wipe the wrist area clean with a bandage. * If the bleeding from your wrist does not stop after 10 minutes, or if there is a large amount of bleeding or spurting, call 911 (do not drive yourself to the hospital). SKIN IRRITATION: * You may experience some redness and/or swelling in the area where radiation was administered. If any skin irritation occurs, please contact your family physician. FOLLOW UP VISIT: Keep any scheduled doctor appointments. Pending Studies at Discharge: No Stand-Alone Forms: [facility], Smoking Cessation Medications and DC Order Prescriptions: New carvedilol 3.125 mg Tablet 3.125 mg PO BID Qty: 60 RF: 1 Continued nitroglycerin 0.4 mg tablet, sublingual 0.4 mg sublingual UNKNOWN PRN (Reason: Chest Pain) RF: 0 PreserVision AREDS-2 [phone] Capsule 1 tab PO BID RF: 0 omeprazole 20 mg Tablet,Delayed Release (Dr/Ec) 20 mg PO QAM RF: 0 levothyroxine 137 mcg Tablet 137 mcg PO DAILYBB RF: 0 aspirin 81 mg Tablet,Delayed Release (Dr/Ec) 81 mg PO DAILY RF: 0 methotrexate sodium 2.5 mg Tablet 15 mg PO WK RF: 0 repaglinide 0.5 mg tablet 0.5 mg PO DIRECTED RF: 0 prednisone 1 mg Tablet 0 mg PO DAILY RF: 0 ferrous sulfate 325 mg (65 mg iron) Tablet 325 mg PO DAILY RF: 0 lisinopril 10 mg Tablet 10 mg PO DAILY RF: 0 folic acid 1 mg Tablet 1 mg PO DAILY RF: 0 albuterol sulfate 90 mcg/actuation HFA aerosol inhaler 2 puff INHALATION Q6 PRN (Reason: Shortness Of Breath) RF: 0 cholecalciferol (vitamin D3) [Vitamin D3] 25 mcg (1,000 unit) Capsule 25 mcg PO DAILY RF: 0 coenzyme Q10 [CoQ-10] 100 mg Capsule 200 mg PO DAILY RF: 0 metformin 500 mg Tablet Extended Release 24hr 1,000 mg PO BID RF: 0 Tresiba FlexTouch U-100 100 unit/mL (3 mL) Insulin Pen 24 unit SUBCUT DAILY RF: 0 Discharge Orders: Discharge Order (Routine); Ordered 08/04/20 Ordered By: Bipin Morales Admission Data Admit Date/Time: 08/03/20 15:10 Attending Provider: Bipin Morales Admit Provider: Haroldo Romero Primary Care Provider: Veronica Ferguson Other Providers: Haroldo Romero ; Parrish Hayes ; Vitaly Diaz ; Dionisio Diehl ; Jeff Lopez ; Goran Vicente ; Ezequiel Grimes ; Tereza Hope ; Sussy Tomlin ; Debbie Rehman ; Octavio Salgado Other Interventions: Discharge Summary Assessment (RN) Last Done: 08/04/20 14:31
[2020-08-23] MEDS ORDERED: predniSONE 1 MG TAB PO SCH (09:00)
[2020-09-23] MEDS ORDERED: predniSONE 1 MG TAB PO SCH (09:00)
[2020-09-24] MEDS ORDERED: predniSONE 1 MG TAB PO SCH (09:00)
== END 2020-08-04 16:10 | disposition home or self-care (01) ==
LOC: 2S 19:16 → ED 19:16 → 2S 08-03 00:56